=== PATIENT | male | born 1975 | race Caucasian/White ===

== ENCOUNTER 2018-11-12 06:01 | Observation (INO) ==
[2018-11-12] MEDS ORDERED: Aspirin 81 MG TAB.CHEW PO ONE (06:19)
[2018-11-12 06:38] LABS: Basophils % 0.4 %; Eosinophils # 0.1 K/mcL (0.0-0.6); Eosinophils % 0.5 %; Hematocrit 43.2 % (37.5-50.1); Hemoglobin 13.8 g/dL (12.9-16.9); Immature Granulocytes % 0.3 % (0-4); Lymphocytes # 3.2 K/mcL (0.6-4.6); Lymphocytes % 35.1 %; Mean Corpuscular HGB Conc 31.9 g/dL (31.6-35.5); Mean Corpuscular Hemoglobin 30.1 pg (28.0-33.3); Mean Corpuscular Volume 94.3 fL (83.0-100.0); Mean Platelet Volume 8.7 fL (9.4-12.4); Monocytes # 0.3 K/mcL (0.0-1.3); Monocytes % 3.6 %; Neutrophils # 5.5 K/mcL (1.6-8.9); Platelet Count 325 K/mcL (140-400); Red Blood Count 4.58 M/mcL (4.19-5.50); Red Cell Distribution Width 14.5 % (11.5-14.5); Segmented Neutrophils % 60.1 %
[2018-11-12 06:46] LABS: INR 1.3; Prothrombin Time 14.5 Seconds (9.4-12.1)
[2018-11-12 06:48] LABS: Activated Partial Thrombo Time 27.6 Seconds (26.0-36.0)
--- NOTE | 2018-11-12 06:55 | Emergency Department Note ---
Disposition Clinical Impression: Elevated troponin, Dilated cardiomyopathy, Right upper quadrant abdominal pain Chest pain Qualifiers: Chest pain type: unspecified Qualified Code(s): R07.9 - Chest pain, unspecified Dyspnea Qualifiers: Dyspnea type: unspecified Qualified Code(s): R06.00 - Dyspnea, unspecified Disposition: Admitted As Inpatient Condition: Fair Time of Disposition: 08:08 Chest Pain HPI - General Chief Complaint: ED Chest Pain Stated Complaint: CHEST PAIN Time Seen by Provider: 11/12/18 06:02 Source: patient, EMS Mode of arrival: EMS Limitations: no limitations Vital Signs Reviewed: Yes Nursing Notes Reviewed: Yes - History of Present Illness HPI Narrative: Alert and oriented nontoxic-appearing 43-year-old male presents for evaluation of ongoing retrosternal and epigastric pain. He was admitted to this facility from [facility] emergency department on October 31. This was after findings of elevated troponin of 0.158. Further workup here by way of a CTA of the chest showed dilated cardiomyopathy. CT of the abdomen showed a distended gallbladder concerning for acute cholecystitis. The patient was endorsing some right upper quadrant abdominal pain as well. He underwent a transthoracic echo which showed a left ventricular ejection fraction of 20% with global hypokinesis. The patient was planned for a cardiac catheterization on November 01 the left AGAINST MEDICAL ADVICE prior to this intervention. He states that he has had pain ever since. He endorses some nausea as well as dyspnea with an exertional component. He rates his pain an 8 out of 10 on a 10 point scale describes it as a dull ache. He denies any productive cough or hemoptysis. He does complain of bilateral lower extremity swelling as well as bilateral lower extremity pain. He is a current every day smoker but denies any other recreational drug use. Pt complaint: chest pain Onset (ago): day(s) Duration: constant Onset: during rest Pain Location: substernal, epigastric Severity: severe Severity scale (1-10): 8 Quality: aching Pain Radiation: none Improves with: nothing Worsens with: exertion Associated symptoms: Reports: nausea, diaphoresis, leg swelling (Bilateral lower extremities). Denies: vomiting, syncope, palpitations, fever, cough Treatments prior to arrival chest pain: none - Related Data Home Medications Medication Instructions Recorded Confirmed No Known Home Drugs 10/31/18 11/12/18 Allergies Allergy/AdvReac Type Severity Reaction Status Date / Time No Known Allergies Allergy Verified 10/31/18 20:01 All systems ED: reviewed and negative except as stated. Review of Systems: As Per HPI Constitutional: Denies: fever, chills, weakness, weight change Eyes: Denies: eye pain, eye discharge, vision change ENT ED: Denies: ear pain, throat pain, dental pain, hearing loss, epistaxis, congestion, dysphagia Cardiovascular: Reports: as per HPI, chest pain, dyspnea on exertion. Denies: palpitations, edema, syncope Respiratory: Reports: as per HPI, dyspnea. Denies: cough, wheezes, hemoptysis, stridor, sputum production Gastrointestinal: Reports: as per HPI, abdominal pain, nausea. Denies: vomiting, diarrhea, constipation, hematemesis, melena, hematochezia Genitourinary: Denies: urgency, dysuria, frequency, hematuria Musculoskeletal: Denies: back pain, neck pain, arthralgia, myalgia Integumentary: Denies: rash, abrasion, lesions Neurological: Denies: headache, weakness, numbness, paresthesias, confusion, abnormal gait, vertigo Psychiatric: Denies: anxiety, depression, suicidal thoughts, homicidal thoughts, auditory hallucinations, visual hallucinations Endocrine: Denies: fatigue Hematological/Lymphatic: Denies: easy bleeding, easy bruising Allergic/Immunologic: Denies: facial swelling, urticaria Chest Pain PMH - Past Medical History Medical history: Reports: no medical history Psychiatric history: Reports: no psych history - Social History Smoking Status: Current every day smoker Alcohol use: Reports: none Drug use: Reports: marijuana Physical Exam - General Limitations: no limitations General appearance: alert, in no apparent distress - Head Head exam: atraumatic, normocephalic, normal inspection - Eye Eye exam: Present: normal appearance, PERRL, EOMI. Absent: conjunctival injection - ENT ENT exam: mucous membranes moist - Neck Neck exam: Present: normal inspection, full ROM - Chest Chest inspection: Present: normal inspection, symmetric chest wall rise - Respiratory Respiratory exam: Present: normal lung sounds bilaterally. Absent: respiratory distress, wheezes, stridor, accessory muscle use, prolonged expiratory phase - Cardiovascular Cardiovascular exam: Present: normal rhythm, tachycardia, normal heart sounds - Abdominal Exam Abdominal exam: Present: soft, tenderness, normal bowel sounds. Absent: distention, guarding, rebound, rigidity, mass Abdominal tenderness: Present: RUQ, epigastrium, moderate - Extremities Exam Extremities exam: Present: full ROM, tenderness (Bilateral lower extremities diffusely), pedal edema (One plus pretibial edema bilaterally) - Expanded Lower Extremity Exam Lower leg exam: Absent: ecchymosis, erythema, palpable cord Neurovascular/Tendon exam: Present: normal capillary refill. Absent: pulse deficit, tendon deficit, extremity cold to touch - Neurological Exam Neurological exam: Present: alert, oriented X3 - Psychiatric Psychiatric exam: Present: normal affect, normal mood - Skin Skin exam: Present: warm, dry, intact, normal color Course Course Narrative: I have discussed this patient's case with Dr. Bradford, ED attending. Dr. Bardford has had a [id number] evaluation with patient and agrees with admission to the hospital service for chest pain rule out as well as further evaluation of his right upper quadrant abdominal pain. He does recommend in itiating heparin per ACS protocol for persistent chest pain with elevated troponin of 0.07. I discussed this patient's case with Dr. Waldrop, admitting hospitalist who has accepted the patient for admission to the hospitalist services. 0820: I spoke with Dr. Douglass, grocery bagger technical healthcare consultant for cardiology consultation in house. Vital Signs Temperature 97.9 F 11/12/18 06:16 Pulse Rate 112 11/12/18 06:16 Respiratory Rate 10 11/12/18 06:16 Blood Pressure 119/99 11/12/18 06:16 O2 Sat by Pulse Oximetry 96 11/12/18 06:16 Temperature 97.9 F 11/12/18 06:16 Pulse Rate 107 11/12/18 08:06 Respiratory Rate 20 11/12/18 08:06 Blood Pressure 124/101 11/12/18 08:06 O2 Sat by Pulse Oximetry 95 11/12/18 08:06 Oxygen Delivery Oxygen Delivery Nasal Cannula Chest Pain - Medical Records Medical records reviewed: Yes I reviewed the patient's medical records. - Lab Data Lab results reviewed: Yes I reviewed the patient's lab results. Lab results narrative: Lab Results 11/12/18 11/12/18 11/12/18 Range/Units 06:12 06:12 06:12 WBC (4.3-11.1) K/mcL RBC (4.19-5.50) M/mcL Hgb (12.9-16.9) g/dL Hct (37.5-50.1) % MCV (83.0-100.0) fL MCH (28.0-33.3) pg MCHC (31.6-35.5) g/dL RDW (11.5-14.5) % Plt Count (140-400) K/mcL MPV (9.4-12.4) fL Immature Gran % (0-4) % Seg Neutrophils % % Lymphocytes % % Monocytes % % Eosinophils % % Basophils % % Neutrophils # (1.6-8.9) K/mcL Lymphocytes # (0.6-4.6) K/mcL Monocytes # (0.0-1.3) K/mcL Eosinophils # (0.0-0.6) K/mcL Basophils # (0.0-0.2) K/mcL PT 14.5 H (9.4-12.1) Seconds INR 1.3 APTT 27.6 (26.0-36.0) Seconds D-Dimer 678 H (0-500) ng/mLFEU Sodium 138 (136-145) mEq/L Potassium 3.8 (3.5-5.1) mEq/L Chloride 107 (98-107) mEq/L Carbon Dioxide 21 L (23-29) mEq/L BUN 14 (6-20) mg/dL Creatinine 1.10 (0.70-1.30) mg/dL Est GFR ( Amer) > 60 (> 60) Est GFR (Non-Af Amer) > 60 (> 60) BUN/Creatinine Ratio 13 (6-26) Glucose 111 H (70-105) mg/dL Calculated Osmolality 287 (280-300) Calcium 9.0 (8.6-10.3) mg/dL Total Bilirubin 1.0 (0.3-1.0) mg/dL AST 13 (13-39) Units/L ALT 12 (7-52) Units/L Alkaline Phosphatase 99 (34-104) Units/L Troponin I 0.07 H* (< 0.04) ng/mL B-Natriuretic Peptide 1595 H (Less than 100) pg/mL Serum Total Protein 6.2 L (6.4-8.9) g/dL Albumin 4.1 (3.5-5.7) g/dL Globulin 2.1 L (2.4-3.5) g/dL Albumin/Globulin Ratio 2.0 (1.1-2.2) Lipase 19 (11-82) Units/L 11/12/18 Range/Units 06:12 WBC 9.2 (4.3-11.1) K/mcL RBC 4.58 (4.19-5.50) M/mcL Hgb 13.8 (12.9-16.9) g/dL Hct 43.2 (37.5-50.1) % MCV 94.3 (83.0-100.0) fL MCH 30.1 (28.0-33.3) pg MCHC 31.9 (31.6-35.5) g/dL RDW 14.5 (11.5-14.5) % Plt Count 325 (140-400) K/mcL MPV 8.7 L (9.4-12.4) fL Immature Gran % 0.3 (0-4) % Seg Neutrophils % 60.1 % Lymphocytes % 35.1 % Monocytes % 3.6 % Eosinophils % 0.5 % Basophils % 0.4 % Neutrophils # 5.5 (1.6-8.9) K/mcL Lymphocytes # 3.2 (0.6-4.6) K/mcL Monocytes # 0.3 (0.0-1.3) K/mcL Eosinophils # 0.1 (0.0-0.6) K/mcL Basophils # 0.0 (0.0-0.2) K/mcL PT (9.4-12.1) Seconds INR APTT (26.0-36.0) Seconds D-Dimer (0-500) ng/mLFEU Sodium (136-145) mEq/L Potassium (3.5-5.1) mEq/L Chloride (98-107) mEq/L Carbon Dioxide (23-29) mEq/L BUN (6-20) mg/dL Creatinine (0.70-1.30) mg/dL Est GFR ( Amer) (> 60) Est GFR (Non-Af Amer) (> 60) BUN/Creatinine Ratio (6-26) Glucose (70-105) mg/dL Calculated Osmolality (280-300) Calcium (8.6-10.3) mg/dL Total Bilirubin (0.3-1.0) mg/dL AST (13-39) Units/L ALT (7-52) Units/L Alkaline Phosphatase (34-104) Units/L Troponin I (< 0.04) ng/mL B-Natriuretic Peptide (Less than 100) pg/mL Serum Total Protein (6.4-8.9) g/dL Albumin (3.5-5.7) g/dL Globulin (2.4-3.5) g/dL Albumin/Globulin Ratio (1.1-2.2) Lipase (11-82) Units/L Result diagrams: 11/12/18 06:12 11/12/18 06:12 Lab Results 11/12/18 11/12/18 11/12/18 Range/Units 06:12 06:12 06:12 WBC (4.3-11.1) K/mcL RBC (4.19-5.50) M/mcL Hgb (12.9-16.9) g/dL Hct (37.5-50.1) % MCV (83.0-100.0) fL MCH (28.0-33.3) pg MCHC (31.6-35.5) g/dL RDW (11.5-14.5) % Plt Count (140-400) K/mcL MPV (9.4-12.4) fL Immature Gran % (0-4) % Seg Neutrophils % % Lymphocytes % % Monocytes % % Eosinophils % % Basophils % % Neutrophils # (1.6-8.9) K/mcL Lymphocytes # (0.6-4.6) K/mcL Monocytes # (0.0-1.3) K/mcL Eosinophils # (0.0-0.6) K/mcL Basophils # (0.0-0.2) K/mcL PT 14.5 H (9.4-12.1) Seconds INR 1.3 APTT 27.6 (26.0-36.0) Seconds D-Dimer 678 H (0-500) ng/mLFEU Sodium 138 (136-145) mEq/L Potassium 3.8 (3.5-5.1) mEq/L Chloride 107 (98-107) mEq/L Carbon Dioxide 21 L (23-29) mEq/L BUN 14 (6-20) mg/dL Creatinine 1.10 (0.70-1.30) mg/dL Est GFR ( Amer) > 60 (> 60) Est GFR (Non-Af Amer) > 60 (> 60) BUN/Creatinine Ratio 13 (6-26) Glucose 111 H (70-105) mg/dL Calculated Osmolality 287 (280-300) Calcium 9.0 (8.6-10.3) mg/dL Total Bilirubin 1.0 (0.3-1.0) mg/dL AST 13 (13-39) Units/L ALT 12 (7-52) Units/L Alkaline Phosphatase 99 (34-104) Units/L Troponin I 0.07 H* (< 0.04) ng/mL B-Natriuretic Peptide 1595 H (Less than 100) pg/mL Serum Total Protein 6.2 L (6.4-8.9) g/dL Albumin 4.1 (3.5-5.7) g/dL Globulin 2.1 L (2.4-3.5) g/dL Albumin/Globulin Ratio 2.0 (1.1-2.2) Lipase 19 (11-82) Units/L 11/12/18 Range/Units 06:12 WBC 9.2 (4.3-11.1) K/mcL RBC 4.58 (4.19-5.50) M/mcL Hgb 13.8 (12.9-16.9) g/dL Hct 43.2 (37.5-50.1) % MCV 94.3 (83.0-100.0) fL MCH 30.1 (28.0-33.3) pg MCHC 31.9 (31.6-35.5) g/dL RDW 14.5 (11.5-14.5) % Plt Count 325 (140-400) K/mcL MPV 8.7 L (9.4-12.4) fL Immature Gran % 0.3 (0-4) % Seg Neutrophils % 60.1 % Lymphocytes % 35.1 % Monocytes % 3.6 % Eosinophils % 0.5 % Basophils % 0.4 % Neutrophils # 5.5 (1.6-8.9) K/mcL Lymphocytes # 3.2 (0.6-4.6) K/mcL Monocytes # 0.3 (0.0-1.3) K/mcL Eosinophils # 0.1 (0.0-0.6) K/mcL Basophils # 0.0 (0.0-0.2) K/mcL PT (9.4-12.1) Seconds INR APTT (26.0-36.0) Seconds D-Dimer (0-500) ng/mLFEU Sodium (136-145) mEq/L Potassium (3.5-5.1) mEq/L Chloride (98-107) mEq/L Carbon Dioxide (23-29) mEq/L BUN (6-20) mg/dL Creatinine (0.70-1.30) mg/dL Est GFR ( Amer) (> 60) Est GFR (Non-Af Amer) (> 60) BUN/Creatinine Ratio (6-26) Glucose (70-105) mg/dL Calculated Osmolality (280-300) Calcium (8.6-10.3) mg/dL Total Bilirubin (0.3-1.0) mg/dL AST (13-39) Units/L ALT (7-52) Units/L Alkaline Phosphatase (34-104) Units/L Troponin I (< 0.04) ng/mL B-Natriuretic Peptide (Less than 100) pg/mL Serum Total Protein (6.4-8.9) g/dL Albumin (3.5-5.7) g/dL Globulin (2.4-3.5) g/dL Albumin/Globulin Ratio (1.1-2.2) Lipase (11-82) Units/L - Radiology Data Radiology results reviewed: Yes I reviewed the patient's radiology results. Chest X-Ray 11/12/18 06:19 IMPRESSION: Interstitial pulmonary edema. Cardiac silhouette is borderline enlarged for AP technique which could reflect cardiomegaly and/or pericardial effusion. Dedicated PA and lateral chest radiograph may help clarify. D/ / Luís Pederson / Luís Pederson Interpreting Provider: Luís Pederson Chest CTA 11/12/18 07:08 IMPRESSION: 1. No acute pulmonary embolism. 2. Cardiomegaly with pulmonary edema as well as moderate right and small left pleural effusions compatible with CHF. 3. Interval resolution of previously demonstrated left upper lobe peripheral lung opacity. D/ / 11/12/2018 07:56:48 Yoli Beasley MD / felicia Interpreting Provider: Yoli Beasley MD - EKG Data EKG attestation: Yes I reviewed and interpreted this EKG. EKG results narrative: EKG shows a sinus tachycardia at a rate of 111 bpm. MS interval 158, QRS duration 96, QT/QTc interval 371/505. No ectopy noted. Mild ST elevations noted in leads V2 and V3 which did not meet STEMI criteria. EKG unchanged in morphology from previous EKG dated from 11/01/18. EKG reviewed by Dr. Ahuja as well.
[2018-11-12] MEDS ORDERED: GI Cocktail 40 ML EACH PO ONE (06:58)
[2018-11-12 06:59] LABS: Alanine Aminotransferase 12 Units/L (7-52); Albumin 4.1 g/dL (3.5-5.7); Alkaline Phosphatase 99 Units/L (34-104); Aspartate Amino Transferase 13 Units/L (13-39); BUN/Creatinine Ratio 13 (6-26); Blood Urea Nitrogen 14 mg/dL (6-20); Carbon Dioxide 21 mEq/L (23-29); Chloride 107 mEq/L (98-107); Globulin 2.1 g/dL (2.4-3.5); Glucose 111 mg/dL (70-105); Lipase 19 Units/L (11-82); Osmolality,Calculated 287 (280-300); Potassium 3.8 mEq/L (3.5-5.1); Sodium 138 mEq/L (136-145); Total Protein 6.2 g/dL (6.4-8.9); Troponin I 0.07 ng/mL (< 0.04); eGFR For Non-African Americans > 60 (> 60)
[2018-11-12] MEDS ORDERED: *HR* Heparin 5,000 UNIT/ML VIAL IVP ONE (06:59)
[2018-11-12] MEDS ORDERED: *HR* Heparin 5,000 UNIT/ML VIAL IVP PRN ×4 (06:59→19:13)
[2018-11-12] MEDS ORDERED: Heparin 25,000 UNIT/250 ML D5W 25,000 UNIT/250 ML IV.SOLN IVC SCH (07:00)
[2018-11-12] MEDS ORDERED: Isovue-370 500 ML BOTTLE IVP ONE (07:08)
--- NOTE | 2018-11-12 07:09 | Emergency Department Note ---
Disposition Clinical Impression: Elevated troponin, Dilated cardiomyopathy, Chest pain, Right upper quadrant abdominal pain, Dyspnea Disposition: Admitted As Inpatient Condition: Fair General Adult HPI - General Chief complaint: ED Chest Pain Stated complaint: CHEST PAIN Time Seen by Provider: 11/12/18 06:02 Source: patient, EMS Mode of arrival: EMS Limitations: no limitations - History of Present Illness Pain Scale: 8 - Related Data Home Medications Medication Instructions Recorded Confirmed No Known Home Drugs 10/31/18 11/12/18 Allergies Allergy/AdvReac Type Severity Reaction Status Date / Time No Known Allergies Allergy Verified 11/12/18 16:07 Constitutional: Denies: fever, chills, weakness, weight change Eyes: Denies: eye pain, eye discharge, vision change ENT ED: Denies: ear pain, throat pain, dental pain, hearing loss, epistaxis, congestion, dysphagia Cardiovascular: Reports: as per HPI, chest pain, dyspnea on exertion. Denies: palpitations, edema, syncope Respiratory: Reports: as per HPI, dyspnea. Denies: cough, wheezes, hemoptysis, stridor, sputum production Gastrointestinal: Reports: as per HPI, abdominal pain, nausea. Denies: vomiting, diarrhea, constipation, hematemesis, melena, hematochezia Genitourinary: Denies: urgency, dysuria, frequency, hematuria Musculoskeletal: Denies: back pain, neck pain, arthralgia, myalgia Integumentary: Denies: rash, abrasion, lesions Neurological: Denies: headache, weakness, numbness, paresthesias, confusion, abnormal gait, vertigo Psychiatric: Denies: anxiety, depression, suicidal thoughts, homicidal thoughts, auditory hallucinations, visual hallucinations Endocrine: Denies: fatigue Hematological/Lymphatic: Denies: easy bleeding, easy bruising Allergic/Immunologic: Denies: facial swelling, urticaria Past Medical History - Past Medical History Medical history: Reports: no medical history Psychiatric history: Reports: no psych history - Social History Smoking Status: Current every day smoker Smokeless Tobacco Status: No Alcohol use: Reports: none Drug use: Reports: marijuana Physical Exam - General Limitations: no limitations General appearance: alert, in no apparent distress Course Vital Signs Temperature 97.9 F 11/12/18 06:16 Pulse Rate 112 11/12/18 06:16 Respiratory Rate 10 11/12/18 06:16 Blood Pressure 119/99 11/12/18 06:16 O2 Sat by Pulse Oximetry 96 11/12/18 06:16 Temperature 98 F 11/12/18 15:44 Pulse Rate 77 11/12/18 15:44 Respiratory Rate 17 11/12/18 15:44 Blood Pressure 130/73 11/12/18 15:44 O2 Sat by Pulse Oximetry 92 11/12/18 15:44 Oxygen Delivery Oxygen Delivery Nasal Cannula Medical Decision Making - Lab Data Result diagrams: 11/12/18 08:04 11/12/18 06:12 Lab Results 11/12/18 11/12/18 11/12/18 Range/Units 06:12 06:12 06:12 WBC (4.3-11.1) K/mcL RBC (4.19-5.50) M/mcL Hgb (12.9-16.9) g/dL Hct (37.5-50.1) % MCV (83.0-100.0) fL MCH (28.0-33.3) pg MCHC (31.6-35.5) g/dL RDW (11.5-14.5) % Plt Count (140-400) K/mcL MPV (9.4-12.4) fL Immature Gran % (0-4) % Seg Neutrophils % % Lymphocytes % % Monocytes % % Eosinophils % % Basophils % % Neutrophils # (1.6-8.9) K/mcL Lymphocytes # (0.6-4.6) K/mcL Monocytes # (0.0-1.3) K/mcL Eosinophils # (0.0-0.6) K/mcL Basophils # (0.0-0.2) K/mcL PT 14.5 H (9.4-12.1) Seconds INR 1.3 APTT 27.6 (26.0-36.0) Seconds D-Dimer 678 H (0-500) ng/mLFEU Heparin Anti-Xa, Unfract (0.30-0.70) IU/mL Sodium 138 (136-145) mEq/L Potassium 3.8 (3.5-5.1) mEq/L Chloride 107 (98-107) mEq/L Carbon Dioxide 21 L (23-29) mEq/L BUN 14 (6-20) mg/dL Creatinine 1.10 (0.70-1.30) mg/dL Est GFR ( Amer) > 60 (> 60) Est GFR (Non-Af Amer) > 60 (> 60) BUN/Creatinine Ratio 13 (6-26) Glucose 111 H (70-105) mg/dL Calculated Osmolality 287 (280-300) Calcium 9.0 (8.6-10.3) mg/dL Total Bilirubin 1.0 (0.3-1.0) mg/dL AST 13 (13-39) Units/L ALT 12 (7-52) Units/L Alkaline Phosphatase 99 (34-104) Units/L Troponin I 0.07 H* (< 0.04) ng/mL B-Natriuretic Peptide 1595 H (Less than 100) pg/mL Serum Total Protein 6.2 L (6.4-8.9) g/dL Albumin 4.1 (3.5-5.7) g/dL Globulin 2.1 L (2.4-3.5) g/dL Albumin/Globulin Ratio 2.0 (1.1-2.2) Lipase 19 (11-82) Units/L 11/12/18 11/12/18 11/12/18 Range/Units 06:12 08:04 08:04 WBC 9.2 8.3 (4.3-11.1) K/mcL RBC 4.58 4.52 (4.19-5.50) M/mcL Hgb 13.8 13.7 (12.9-16.9) g/dL Hct 43.2 42.1 (37.5-50.1) % MCV 94.3 93.1 (83.0-100.0) fL MCH 30.1 30.3 (28.0-33.3) pg MCHC 31.9 32.5 (31.6-35.5) g/dL RDW 14.5 14.6 H (11.5-14.5) % Plt Count 325 294 (140-400) K/mcL MPV 8.7 L 8.9 L (9.4-12.4) fL Immature Gran % 0.3 (0-4) % Seg Neutrophils % 60.1 % Lymphocytes % 35.1 % Monocytes % 3.6 % Eosinophils % 0.5 % Basophils % 0.4 % Neutrophils # 5.5 (1.6-8.9) K/mcL Lymphocytes # 3.2 (0.6-4.6) K/mcL Monocytes # 0.3 (0.0-1.3) K/mcL Eosinophils # 0.1 (0.0-0.6) K/mcL Basophils # 0.0 (0.0-0.2) K/mcL PT 13.9 H (9.4-12.1) Seconds INR 1.2 APTT (26.0-36.0) Seconds D-Dimer (0-500) ng/mLFEU Heparin Anti-Xa, Unfract 0.01 L (0.30-0.70) IU/mL Sodium (136-145) mEq/L Potassium (3.5-5.1) mEq/L Chloride (98-107) mEq/L Carbon Dioxide (23-29) mEq/L BUN (6-20) mg/dL Creatinine (0.70-1.30) mg/dL Est GFR ( Amer) (> 60) Est GFR (Non-Af Amer) (> 60) BUN/Creatinine Ratio (6-26) Glucose (70-105) mg/dL Calculated Osmolality (280-300) Calcium (8.6-10.3) mg/dL Total Bilirubin (0.3-1.0) mg/dL AST (13-39) Units/L ALT (7-52) Units/L Alkaline Phosphatase (34-104) Units/L Troponin I (< 0.04) ng/mL B-Natriuretic Peptide (Less than 100) pg/mL Serum Total Protein (6.4-8.9) g/dL Albumin (3.5-5.7) g/dL Globulin (2.4-3.5) g/dL Albumin/Globulin Ratio (1.1-2.2) Lipase (11-82) Units/L Critical Care Time Critical Care Time: Yes Total Critical Care Time: 30 Attestation: The high probability of a clinically significant, sudden or life threatening deterioration of the [] system(s) required my full and direct attention, intervention and personal management. The aggregate critical care time was [] minutes. This time is in addition to time spent performing reported procedures but includes the following: [] Data Review and interpretation [] Patient assessment and monitoring of vital signs [] Documentation [] Medication orders and management Attestation Statement - Attestation Attestation: For this encounter, I have reviewed the [employer] or PA documentation, treatment plan, and medical decision making; and I have had face to face time with this patient. [id number] time provided Patient presents with upper abdominal pain as well as chest pain. He was recently admitted for similar symptoms with workup. I see that he did have a gallbladder ultrasound at that time. He was scheduled for a cardiac catheterization times medical advice. Today the patient is tachycardic with an elevated d-dimer. I did recommend a CTA chest although I was told he did have one at an outside facility last week which was negative for PE. I did review the transcribed report of his echocardiogram from last week which shows dilated cardiomyopathy with a depressed ejection fraction. The patient will require heparinization due to an elevated troponin and admission for further evaluation
[2018-11-12] MEDS ORDERED: Naloxone 0.4 MG/ML INJ IVP PRN ×2 (08:08→19:13)
[2018-11-12] MEDS ORDERED: Adenosine 90 MG/30 ML MLS IV ONE (08:10)
[2018-11-12 08:27] LABS: Hematocrit 42.1 % (37.5-50.1); Hemoglobin 13.7 g/dL (12.9-16.9); Mean Corpuscular HGB Conc 32.5 g/dL (31.6-35.5); Mean Corpuscular Hemoglobin 30.3 pg (28.0-33.3); Mean Corpuscular Volume 93.1 fL (83.0-100.0); Mean Platelet Volume 8.9 fL (9.4-12.4); Platelet Count 294 K/mcL (140-400); Red Blood Count 4.52 M/mcL (4.19-5.50); Red Cell Distribution Width 14.6 % (11.5-14.5)
[2018-11-12 08:40] LABS: Heparin anti-factor XA UFH 0.01 IU/mL (0.30-0.70); INR 1.2; Prothrombin Time 13.9 Seconds (9.4-12.1)
[2018-11-12] MEDS ORDERED: Nitroglycerin 0.4 MG TAB.SUBL SL PRN ×2 (10:20→19:13)
[2018-11-12] MEDS ORDERED: *HR* Morphine 2 MG/ML SYRINGE IVP PRN (10:22)
[2018-11-12] MEDS ORDERED: Aspirin 81 MG TAB.CHEW PO SCH (10:30)
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
[2018-11-12] MEDS ORDERED: 0.9 % Sodium Chloride 250 ML ONE (11:02)
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
[2018-11-12] MEDS: Furosemide 40 MG/4 ML VIAL IVP SCH ×2 (12:11→17:59)
[2018-11-12 13:22] LABS: Bilirubin,Urine Negative (Negative); Blood,Urine Negative (Negative); Clarity,Urine Clear (Clear); Color,Urine Yellow (Yellow); Glucose,Urine (UA) Normal (Normal); Ketones,Urine Negative (Negative); Leukocyte Esterase,Urine Negative (Negative); Nitrite,Urine Negative (Negative); Protein,Urine Negative (Neg-Trace); Specific Gravity,Urine 1.025 (1.010-1.025); Urobilinogen,Urine Normal (Normal)
[2018-11-12 13:33] LABS: Amphetamine Screen,Urine Positive ng/mL (Cutoff=1000); Barbiturate Screen,Urine Negative ng/mL (Cutoff=200); Benzodiazepines Screen,Urine Negative ng/mL (Cutoff=200); Cannabinoid Screen,Urine Negative ng/mL (Cutoff = 50); Cocaine Screen,Urine Negative ng/mL (Cutoff= 300); Opiate Screen,Urine Negative ng/mL (Cutoff=300); Phencyclidine Screen,Urine Negative ng/mL (Cutoff=25)
[2018-11-12] MEDS: Heparin 25,000 UNIT/250 ML D5W 25,000 UNIT/250 ML IV.SOLN IVC SCH (21:19)
[2018-11-13 01:37] LABS: Basophils # 0.1 K/mcL (0.0-0.2); Basophils % 0.6 %; Eosinophils # 0.1 K/mcL (0.0-0.6); Eosinophils % 1.4 %; Hematocrit 42.1 % (37.5-50.1); Hemoglobin 13.6 g/dL (12.9-16.9); Immature Granulocytes % 0.3 % (0-4); Lymphocytes # 3.3 K/mcL (0.6-4.6); Lymphocytes % 37.4 %; Mean Corpuscular HGB Conc 32.3 g/dL (31.6-35.5); Mean Corpuscular Hemoglobin 29.5 pg (28.0-33.3); Mean Corpuscular Volume 91.3 fL (83.0-100.0); Mean Platelet Volume 9.3 fL (9.4-12.4); Monocytes # 0.3 K/mcL (0.0-1.3); Monocytes % 3.8 %; Platelet Count 306 K/mcL (140-400); Red Blood Count 4.61 M/mcL (4.19-5.50); Red Cell Distribution Width 14.5 % (11.5-14.5); Segmented Neutrophils % 56.5 %
[2018-11-13 01:53] LABS: BUN/Creatinine Ratio 13 (6-26); Blood Urea Nitrogen 17 mg/dL (6-20); Calcium 9.1 mg/dL (8.6-10.3); Carbon Dioxide 23 mEq/L (23-29); Chloride 104 mEq/L (98-107); Glucose 117 mg/dL (70-105); Magnesium 1.7 mg/dL (1.6-2.6); Osmolality,Calculated 289 (280-300); Phosphorous 4.1 mg/dL (2.7-4.5); Potassium 3.6 mEq/L (3.5-5.1); Sodium 138 mEq/L (136-145); eGFR For Non-African Americans > 60 (> 60)
[2018-11-13] MEDS: Furosemide 40 MG/4 ML VIAL IVP SCH ×2 (07:54→16:38)
[2018-11-13] MEDS: Aspirin 81 MG TAB.CHEW PO SCH (07:54)
[2018-11-13] MEDS: Metoprolol XL (24 HR) Succ 25 MG TAB.ER.24H PO SCH (07:54)
--- NOTE | 2018-11-13 08:17 | Event Note ---
Date of Encounter: 11/13/18 Time of Encounter: 08:15 - Cardiology Event Note EF 20% on echo, Trop 0.07, 0.06, 0.09, 0.08. On asa, statin, IV lasix, BB, Hep gtt. [facility] today.
--- NOTE | 2018-11-13 08:48 | Internal Med Progress Note ---
<Joe Bethea - Last Filed: 11/13/18 16:43> Hospitalist Progress Note - Encounter Date of Encounter: 11/13/18 Time of Encounter: 08:55 - Subjective Interval History: Patient was seen and examined at bedside. He states he is feeling well today. He denies having any chest pain, shortness of breath, fever, chills, diaphoresis, visual changes, headache, lower extremity swelling, or palpitations. He is scheduled for a left heart catheterization later today. He has no complaints at this time. - Exam Vitals: Temp Pulse Resp BP Pulse Ox 97.9 F 116 18 123/89 97 11/13/18 07:20 11/13/18 07:20 11/13/18 07:20 11/13/18 07:20 11/13/18 07:20 Exam: General: Conversant, no acute distress Head: atraumatic, normocephalic Eye: PERRL, EOMI, conjuntiva pink, sclera anicteric Neck: Supple, trachea midline; No lymphadenopathy Respiratory: Shortened inspiratory phase. No accessory muscle use, wheezes, rales, or rhonchi Cardiovascular: RRR, +S1, +S2; no murmurs, rubs, gallops Abdomen: Soft, nontender Extremities: warm, radial pulses palpable and symmetrical Psychiatric: Normal affect, normal mood Skin: Dry, intact - Assessment and Plan (1) HFrEF (heart failure with reduced ejection fraction) Current Visit: Yes Status: Acute Assessment and Plan: - Patient was recently diagnosed with dilated cardiomyopathy - Severely reduced ejection fraction of 20%; LV function globally reduced - Initially presented with lower extremity edema - CXR on admission: interstitial pulmonary edema, enlarged cardiac silhouette - CTA on admission: Cardiomegaly with pulmonary edema, moderate right, small left pleural effusion - BNP was elevated on presentation at 1595 Plan: - Lasix 40 mg IV twice a day - Strict intake and output, daily weights - Currently on 2 L fluid restriction daily - Low-dose beta monica has been started; metoprolol XL 12.5 mg by mouth daily - Currently on aspirin and statin - Cardiology is currently following; per cardiology event note, plan is for [facility] later today (2) NSTEMI (non-ST elevated myocardial infarction) Current Visit: No Status: Acute Assessment and Plan: - Initially presented with chest pain of several days duration - Troponin levels: 07, 0.06, 0.09, 0.08 - EKG - Mild ST elevations noted in leads V2 and V3; 111 bpm - Urine drug screen was positive for amphetamines Plan: - Currently NPO - Cardiology following; [facility] later today - Currently on heparin drip - Continue aspirin, statin, metoprolol XL 12.5 mg by mouth daily (3) Tachycardia Current Visit: Yes Status: Acute Assessment and Plan: - Unknown etiology at this time - Heart rate has been approximately 100-120 since admission - CTA of the chest was negative for PE - UDS was positive for amphetamine - Was started on low-dose beta monica, metoprolol XL 12.5 mg by mouth daily - Would appreciate any further recommendations from cardiology (4) Right upper quadrant abdominal pain Current Visit: Yes Status: Acute Assessment and Plan: - Patient presented with pain in the right upper quadrant - Ultrasound of the gallbladder is ordered and is currently pending - White count within normal limits, afebrile - Time Spent with Patient Total time spent is greater than 50% in coordination of care (as documented) at patient's floor/unit and/or counseling patient: Internal Medicine: Result - Labs CBC & Chem 7: 11/13/18 00:16 11/13/18 00:16 Labs: Short CBC 11/13/18 Range/Units 00:16 WBC 8.8 (4.3-11.1) K/mcL Hgb 13.6 (12.9-16.9) g/dL Hct 42.1 (37.5-50.1) % Plt Count 306 (140-400) K/mcL Neutrophils # 5.0 (1.6-8.9) K/mcL BMP 11/13/18 00:16 Sodium 138 Potassium 3.6 Chloride 104 Carbon Dioxide 23 BUN 17 Creatinine 1.26 Glucose 117 H Calcium 9.1 Cardiac Enzymes 11/12/18 11/12/18 11/13/18 Range/Units 12:27 18:49 00:16 Troponin I 0.06 H* 0.09 H* 0.08 H* (< 0.04) ng/mL Urine 11/12/18 Range/Units 12:57 Urine Color Yellow (Yellow) Urine Clarity Clear (Clear) Urine pH 6.0 (5.0-8.0) pH Units Ur Specific [place] 1.025 (1.010-1.025) Urine Protein Negative (Neg-Trace) mg/dL Urine Glucose (UA) Normal (Normal) mg/dL - ABG Interpretation ABG results: PT/INR, D-dimer PT 13.9 Seconds (9.4-12.1) H 11/12/18 08:04 678 ng/mLFEU (0-500) H 11/12/18 06:12 - Impressions Impressions Chest CTA 11/12/18 07:08 IMPRESSION: 1. No acute pulmonary embolism. 2. Cardiomegaly with pulmonary edema as well as moderate right and small left pleural effusions compatible with CHF. 3. Interval resolution of previously demonstrated left upper lobe peripheral lung opacity. 4. Enlarged mediastinal and hilar lymph nodes, likely reactive. D/ / 11/12/2018 07:56:48 Yoli Beasley MD / felicia Interpreting Provider: Yoli Beasley MD Consult Discharge Plan - Plan Referrals: NONE,PCP [Primary Care Provider] - Prescriptions: Sacubitril/Valsartan 24/26 mg [Entresto 24 mg-26 mg Tablet] 1 each PO BID #60 tablet <Grady Torres - Last Filed: 11/13/18 17:36> Hospitalist Progress Note - Encounter Date of Encounter: 11/13/18 - Exam Vitals: Temp Pulse Resp BP Pulse Ox 98.0 F 107 18 120/82 98 11/13/18 17:19 11/13/18 17:19 11/13/18 17:19 11/13/18 17:19 11/13/18 17:19 - Assessment and Plan (1) Tobacco abuse Current Visit: Yes Status: Acute (2) Dilated cardiomyopathy Current Visit: Yes Status: Acute (3) DVT prophylaxis Current Visit: Yes Status: Acute (4) Chest pain Current Visit: Yes Status: Acute (5) Acute systolic CHF (congestive heart failure) Current Visit: Yes Status: Acute - Time Spent with Patient Total time spent is greater than 50% in coordination of care (as documented) at patient's floor/unit and/or counseling patient: Internal Medicine: Result - Labs CBC & Chem 7: 11/13/18 00:16 11/13/18 00:16 Labs: Short CBC 11/13/18 Range/Units 00:16 WBC 8.8 (4.3-11.1) K/mcL Hgb 13.6 (12.9-16.9) g/dL Hct 42.1 (37.5-50.1) % Plt Count 306 (140-400) K/mcL Neutrophils # 5.0 (1.6-8.9) K/mcL BMP 11/13/18 00:16 Sodium 138 Potassium 3.6 Chloride 104 Carbon Dioxide 23 BUN 17 Creatinine 1.26 Glucose 117 H Calcium 9.1 Cardiac Enzymes 11/12/18 11/13/18 Range/Units 18:49 00:16 Troponin I 0.09 H* 0.08 H* (< 0.04) ng/mL - ABG Interpretation ABG results: PT/INR, D-dimer PT 13.9 Seconds (9.4-12.1) H 11/12/18 08:04 678 ng/mLFEU (0-500) H 11/12/18 06:12 - Impressions Impressions Gallbladder Ultrasound 11/13/18 08:00 IMPRESSION: Unremarkable right upper quadrant ultrasound. D/ / Barrett Kurtz MD / Barrett Kurtz MD Interpreting Provider: Barrett Kurtz MD - Attending Attestation I examined this patient and my medical decision-making was reviewed with the Resident Physician. I agree with the documented findings, disposition and treatment plan as described except to the extent set forth below. <Joe Bethea - Last Filed: 11/13/18 16:43> (1) HFrEF (heart failure with reduced ejection fraction) Qualifiers: Heart failure chronicity: acute on chronic Qualified Code(s): I50.23 - Acute on chronic systolic (congestive) heart failure <Grady Torres - Last Filed: 11/13/18 17:36> (4) Chest pain Qualifiers: Chest pain type: unspecified Qualified Code(s): R07.9 - Chest pain, unspecified
[2018-11-13] MEDS ORDERED: Metoprolol XL (24 HR) Succ 25 MG TAB.ER.24H PO SCH (09:00)
--- NOTE | 2018-11-13 13:49 | Pre-Sedation Evaluation ---
Pre-sedation evaluation - Pre-sedation checklist Date of procedure: 11/13/18 Procedure: Cardiac Cath Recent Vitals: Last Vital Signs Temp 97.9 F 11/13/18 07:20 Pulse 105 11/13/18 11:44 Resp 16 11/13/18 11:44 BP 103/76 11/13/18 11:44 Pulse Ox 98 11/13/18 11:44 H&P (including ROS) documented in medical record: Yes Previous reaction to sedatives/anesthetics: No Dietary Status: NPO after Midnight Dentition: No loose teeth or bridges, poor dentition ASA Classification *see protocol: CLASS II-Mild systemic disease Cardiac Registry (Cardio Only) - Functional Capacity Functional Capacity: >=4 METS without symptoms - Clincal Frailty Scale Clinical Frailty Scale: Managing Well
[2018-11-13] MEDS ORDERED: *HR* Heparin 10,000 UNIT/10 ML VIAL ONE ×2 (14:36→15:15)
[2018-11-13] MEDS ORDERED: 0.9 % Sodium Chloride 1,000 ML ONE ×2 (14:36→14:40)
[2018-11-13] MEDS ORDERED: Heparin 1,000 UNITS/500 mL 500 ML ONE (14:36)
[2018-11-13] MEDS ORDERED: ISOVUE-370 200 ML INFUS..BTL ONE ×2 (14:37→15:19)
[2018-11-13] MEDS ORDERED: Nitroglycerin 1,000 MCG/10 ML VIAL IV ONE (14:37)
[2018-11-13] MEDS ORDERED: *HR* FentaNYL (PF) 100 MCG/2 ML VIAL ONE (14:43)
[2018-11-13] MEDS ORDERED: *HR* Midazolam HCl 2 MG/2 ML VIAL ONE (14:43)
--- NOTE | 2018-11-13 15:49 | Event Note ---
Date of Encounter: 11/13/18 Time of Encounter: 15:45 - Cardiology Event Note [facility] completed. No intervention. Moderate non-obstructive CAD seen. Medical management recommended. NICMP. Recommended to start entresto. RX sent to [facility] pharmacy for [place] check. Continue IV diuresis with plan to transition to oral lasix tomorrow.
--- NOTE | 2018-11-13 16:03 | Invasive Diagnostic Lab Proc ---
Name: Jas Vargas Date of Study: 11/13/2018 Date: 1975 Ht: 70.9in Medical Record#: [id number] Age: 43 Wt: 216.05lb Gender: Male BSA: 2.18 Order #: [id number] BMI: 30.25 Physicians Procedure Physician: Lokesh Jain MD Referring MD: Referring MD: Staff Name Position Time In Alexander Kelly RN 02:43 PM Alexander Kelly RN Yarding Supervisor 02:44 PM Afshan Oliva RT Scrub 02:44 PM Ton Chase RN Monitor 02:45 PM Rosalia Smith RT (R) Scrub 02:51 PM Indications Indication Non-Stemi Procedures Performed Procedure L HRT ARTERY/VENTRICLE ANGIO IV Doppler BLD Flow 1st Vessel Pre-Procedure Checklist Informed consent is complete signed and on chart. H&P is on chart. ID band is on and ID verified with patient. Patient NPO for procedure The procedure was described for the patient and questions were answered. Blood Pressure: 124/83 ECG is on chart. Rhythm: Sinus Tachycardia Plan of Care Patient will tolerate the procedure without complications. Adequate level of comfort will be maintained. Hemodynamics will remain stable Patient will recover from procedure without complications. Respiratory function will be maintained. Cardiac rhythm will remain stable. Patient temperature will be maintained. Patient and/or family have verbalized understanding of the procedure. Patient Education Chief Complaint/Reason for Test: Cardiac Cath Developmental Category: Adult (18-64 years) Developmentally Appropriate for Age: Yes Learning Barriers: None Education Needs: Procedure Education Method: Verbal Information Taught: Cardiac Cath Educational Evaluation: Able to repeat information Intravenous Access Time IV Size Location DC'd Fluid/Drip Rate Units RN 20g 1 /" Patent On Arrival 0.9NaCl ml/hr Allergies No Known Allergies Vital Signs Time BP (mmHg) HR (bpm) O2 Sat. RR (bpm) LOC 02:45 PM / % 5 = Fully awake and oriented or at pre-proc level 02:45 PM / % 4 = Oriented but drowsy 03:01 PM / % 4 = Oriented but drowsy 03:16 PM / % 4 = Oriented but drowsy 02:49 PM 124 / 83 103 98 % 18 02:53 PM 123 / 86 106 98 % 18 02:58 PM 126 / 85 103 98 % 15 03:03 PM 119 / 83 99 96 % 16 03:08 PM 124 / 88 102 96 % 03:13 PM 129 / 91 102 93 % 15 03:19 PM 126 / 84 98 97 % 14 03:23 PM 129 / 85 104 95 % 03:29 PM 129 / 92 105 97 % 18 03:31 PM / % 5 = Fully awake and oriented or at pre-proc level Procedural Medications Time Medication Dose Units Method Given By 02:48 PM Versed 1 mg Intravenous Alexander Kelly RN 02:48 PM Fentanyl 50 mcg Intravenous Alexander Kelly RN 03:02 PM Oxygen 2 L/min nasal cannula Alexander Kelly RN 03:02 PM Versed 0.5 mg Intravenous Alexander Kelly RN 03:03 PM Fentanyl 25 mcg Intravenous Alexander Kelly RN 03:03 PM Lidocaine 2% 19 ml Subcutaneous Lokesh Jain MD 03:15 PM Heparin 5000 units Intravenous Alexander Kelly RN 03:20 PM 90mg Adenosine in 90 ml 0.9 NS 823 mcg Intravenous Alexander Kelly RN 03:24 PM 90mg Adenosine in 90 ml 0.9 NS 823 mcg Intravenous Alexander Kelly RN ASA Classification: CLASS II- Mild systemic disease (i.e. well-controlled diabetes, hypertension, asthma, cigarette smoking) Gabriella Score Preprocedure Postprocedure Activity 2- Moves 4 extremities sustained head lift Activity 2- Moves 4 extremities sustained head lift Circulation 2- SBP +/= 20 points of pre-anesthetic level Circulation 2- SBP +/= 20 points of pre-anesthetic level Consciousness 2- Awake and alert oriented x 3 Consciousness 2- Awake and alert oriented x 3 O2 Saturation 2- Able to maintain O2 satruation of 92% on room air O2 Saturation 2- Able to maintain O2 satruation of 92% on room air Respiratory 2- Able to deep breathe and cough well Respiratory 2- Able to deep breathe and cough well Total Score 10 Total Score 10 Contrast Agent: Isovue Diagnostic Contrast: 111 ml Total Contrast: 111 ml Fluoro Dose: 45 mGy Activated Clotting Time Time Seconds to Clot 03:15 PM 119 Procedure Log Time Note Enter By 02:42 PM Case Start 02:43 PM 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 Informed consent was obtained. oparker 02:44 PM IV Supplies used: J loop Angio Cath. oparker 02:44 PM Patient charges- Angio tray pack, Navilyst 3mm J, Pulse Oximetry and ACIST tubing and transducer oparker 02:44 PM ASA Class CLASS II- Mild systemic disease (i.e. well-controlled diabetes, hypertension, asthma, cigarette smoking) oparker 02:44 PM Afshan Oliva RT Position: Scrub Time in: :44 oparker 02:45 PM Ton Chase RN Position: Monitor Time in: 14:45 oparker 02:45 PM Hair removed from procedure site in holding area using clippers. Bilateral groin prepped with Chloraprep by Afshan Oliva, then patient was draped. Skin intact. oparker 02:45 PM Time: 14:45LOC: 5 = Fully awake and oriented or at pre-proc level oparker 02:45 PM Time: 14:45 Patient comfortable and pain free: Yes oparker 02:48 PM Vitals capture started with the following parameters, Patient=Adult, Interval=5 min, Initial Vmqjhyae=016 mmHg, Deflation Rate=5 mmHg, Cuff placed on Right Leg 02:48 PM Time: 14:48 Versed 1 mg Intravenous Given by Alexander Kelly RN oparker 02:48 PM Time: 14:48 Fentanyl 50 mcg Intravenous Given by Alexander Kelly RN oparker 02:49 PM OR=430 bpm, URHY=504/83 mmhg, SpO2=98.0 %, Resp=18 B/min, Comment=Sinus tach 02:49 PM Recorded ECG: DX=899 Condition=Condition 1 02:51 PM Rosalia Smith RT (R) Position: Scrub Orientee Time in: 14:51 oparker 02:53 PM NI=863 bpm, FTVH=584/86 mmhg, SpO2=98.0 %, Resp=18 B/min, Comment=Sinus tach 02:55 PM Pressure channel 1 zeroed. 02:58 PM DA=345 bpm, FDMH=805/85 mmhg, SpO2=98.0 %, Resp=15 B/min, EtCO2=24 mmHg, Comment=Sinus tach 03:01 PM Time: 14:45 Patient comfortable and pain free: Yes oparolena 03:01 PM Time: 14:45LOC: 4 = Oriented but drowsy oparolena 03:02 PM Time: 15:02 Oxygen on at 2 L/min per nasal cannula by Alexander Kelly RN 03:03 PM Time: 15:02 Versed 0.5 mg Intravenous Given by Alexander Kelly RN 03:03 PM Time: 15:03 Fentanyl 25 mcg Intravenous Given by Alexander Kelly RN 03:03 PM Procedure start 15:00 oparker 03:03 PM Time: 15:03 19 ml Lidocaine 2% to right groin Subcutaneous Given by MD sandee Curtis 03:03 PM HR=99 bpm, XTJZ=649/83 mmhg, SpO2=96.0 %, Resp=16 B/min, EtCO2=29 mmHg, Comment=Sinus tach 03:03 PM Time out was performed according to hospital policy. Conscious sedation and anesthesia was achieved (see medication log with in this report above) oparker 03:04 PM Micro-Introducer Kit utilized for sheath placement oparker 03:06 PM Access obtained by percutaneous puncture. 6Fr 10cm Terumo Boyds sheath placed in right Femoral artery. [id number] oparker 03:07 PM 0.035 145cm Navilyst 3mmJ wire [id number] oparker 03:07 PM 5Fr FR 4 catheter inserted over the wire DN oparker 03:08 PM RCA angiography performed in multiple views. oparker 03:08 PM Recorded Pressure: Ao, OM=521, Condition=Condition 1 (Aorta) Ao 95/85/90 03:08 PM PG=326 bpm, IFOW=501/88 mmhg, SpO2=96.0 %, EtCO2=20 mmHg, Comment=Sinus tach 03:08 PM Catheter removed oparker 03:08 PM 5Fr FL 4 catheter inserted over the wire DN oparker 03:09 PM LCA angiography performed in multiple views. oparker 03:10 PM Recorded Pressure: Ao, ON=987, Condition=Condition 1 (Aorta) Ao 101/83/92 03:12 PM Catheter removed oparker 03:13 PM KJ=723 bpm, OHYC=155/91 mmhg, SpO2=93.0 %, Resp=15 B/min, Comment=Sinus tach 03:15 PM At 15:15 the ACT was 119 seconds. oparker 03:15 PM Time: 15:15 Heparin 5000 units Intravenous Given by Alexander Kelly RN oparker 03:16 PM .014 [employer] [place] 190cm guide wire across target lesion- successful. reused? No oparker 03:16 PM Time: 15:01 Patient comfortable and pain free: Yes oparker 03:16 PM Time: 15:01LOC: 4 = Oriented but drowsy oparker 03:16 PM Asist FFR Catheter advanced to target lesion. oparker 03:16 PM [ Start FFR sample ] 03:16 PM Pressure channel 4 zeroed. 03:19 PM HR=98 bpm, CGJW=047/84 mmhg, SpO2=97.0 %, Resp=14 B/min, EtCO2=33 mmHg, Comment=Sinus tach 03:20 PM Pressure channel 4 equalized to channel 1. 03:21 PM Time: 15:20 90mg Adenosine in 90 ml 0.9 NS 823 mcg Intravenous Given by Alexander Kelly RN Villarreal pump oparker 03:22 PM Recorded Pressure: Ao, PV1, ZJ=198, Condition=Condition 1 (Aorta) Ao 98/87/93, (Portal Vein) PV1 86/91/78 03:23 PM FFR Measurement: 0.82 oparker 03:23 PM BJ=614 bpm, KERN=229/85 mmhg, SpO2=95.0 %, EtCO2=26 mmHg, Comment=Sinus tach 03:24 PM Time: 15:24 90mg Adenosine in 90 ml 0.9 NS 823 mcg Intravenous Given by Alexander Kelly RN Villarreal pump oparker 03:26 PM Recorded Pressure: Ao, PV1, EZ=912, Condition=Condition 1 (Aorta) Ao 100/87/94, (Portal Vein) PV1 87/93/80 03:26 PM FFR: Condition=Condition 1, Device=VOLCANO PRIME WIRE 03:26 PM Recorded Pressure: Ao, PV1, CV=868, Condition=Condition 1 (Aorta) Ao 100/88/95, (Portal Vein) PV1 87/93/80 03:26 PM FFR Measurement: 0.84 oparker 03:27 PM [ Start FFR sample ] 03:27 PM [ Start FFR sample ] 03:27 PM Flow Wire/Catheter removed intact oparker 03:28 PM Guide wire removed intact. oparker 03:29 PM ZI=646 bpm, PKRK=889/92 mmhg, SpO2=97.0 %, Resp=18 B/min, EtCO2=25 mmHg, Comment=Sinus tach 03:29 PM 5Fr Pigtail catheter inserted over the wire DNC oparker 03:29 PM Catheter crossed the aortic valve and was selectively placed in the left ventricle. Pressures recorded on pullback for left heart catheterization. oparker 03:30 PM Wire removed oparker 03:30 PM Recorded Pressure: LV, AT=279, Condition=Condition 1 (Left Ventricle) LV 141/27/75 03:31 PM Pressure channel 1 zero failed. 03:31 PM Time: 15:16LOC: 4 = Oriented but drowsy oparker 03:31 PM Time: 15:16 Patient comfortable and pain free: Yes oparker 03:31 PM Recorded Pressure: LV, Ao, EC=360, Condition=Condition 1 (Left Ventricle) LV 119/16/39, (Aorta) Ao 122/24/71 03:31 PM Lesion found in Mid LAD. Pre Stenosis: 65 Pre SAMANTA Flow: 3: Complete and Brisk Flow/Perfusion oparker 03:31 PM Lesion found in Mid Circumflex. Pre Stenosis: 50 Pre SAMANTA Flow: 3: Complete and Brisk Flow/Perfusion oparker 03:32 PM Catheter removed oparker 03:32 PM Procedure completed at 15:32 11/13/2018 oparker 03:33 PM Sign out completed: Radiation Dose 357.51 mGy, 44.7 Gy/cm2 Fluoro Time: 5.9 Isovue 370 - 200ml contrast 111 ml given by Lokesh Jain MD. Complications: None. 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 Sedation minutes 45. Cardiac Rehab Consult needed: No. Confirmed administered medications: Yes oparker 03:40 PM Did you address SAMANTA flow and Dominance? YesCoronary Dominance: right oparker 03:41 PM Arterial sheath pulled, Angio-seal closure device used and was Successful S/N. oparker 03:41 PM Estimated Blood Loss: minimal oparker 03:41 PM Post ECG Sinus Tachycardia oparker 03:41 PM Post Blood Pressure 113/74 oparker 03:42 PM 15:41 Post Pulses Bilateral DP 2+ oparker 03:42 PM Information taught Cardiac Cath, IVUS/Flowire, and Angioseal oparker 03:42 PM Education needs Procedure, Plan of Care, and Disease Process oparker 03:42 PM Learning barriers :None oparker 03:42 PM Education Methods Verbal oparker 03:42 PM Education evaluation Able to repeat information oparker 03:42 PM Site status No bleeding/hematoma - Rt Groin as reported by Afshan Oliva RT at 15:42 oparker 03:42 PM Opsite applied oparker 03:42 PM Delay to floor No oparker 03:42 PM Family placed in consult room. oparker 03:43 PM Complications: None oparker 03:44 PM What is the NYHA Class? Class 3 oparker 03:46 PM Time: 15:31 Patient comfortable and pain free: Yes oparker 03:46 PM Time: 15:31LOC: 5 = Fully awake and oriented or at pre-proc level oparker 03:47 PM Report given to sandor CROCKER Pt taken to 2NE Room #29. 15:47 oparker 03:47 PM Patient out of room: 15:47 oparker Complications Complication None None Hemodynamics Pressures Site Systolic/A Wave Diastolic/V Wave Mean AO 95 85 90 AO 101 83 92 AO 98 87 93 PV1 86 91 78 AO 100 87 94 PV1 87 93 80 AO 100 88 95 PV1 87 93 80 LV 141 27 75 LV 119 16 39 AO 122 24 71 Post Procedure Information Blood Pressure: 113/74 mmHg Rhythm: Sinus Tachycardia Post procedural instructions were given Closure Device Time Device Success/Fail 11/13/2018 3:39:00 PM Angio-Seal VIP yes Site Checks Time Location Status Staff Sheath In? Note 03:42 PM Rt Groin No bleeding/hematoma Afshan Oliva RT Pulses Time Site Pre-Procedure Post-Procedure Note Bilateral DP & PT 1+ Bilateral radial 2+ 3:41:00 PM Bilateral DP 2+ Updated by Ton Chase RN on 11/13/2018 3:51:45 PM electronically signed on 11/13/2018 3:52:35 PM with status of Final
[2018-11-13] MEDS ORDERED: traMADol 50 MG TABLET PO PRN (19:42)
[2018-11-13] MEDS ORDERED: GI Cocktail 40 ML EACH PO ONE (23:47)
[2018-11-14] MEDS: Pantoprazole 40 MG VIAL IVP SCH ×2 (01:45→07:52)
[2018-11-14 05:53] LABS: Basophils # 0.1 K/mcL (0.0-0.2); Basophils % 0.6 %; Eosinophils # 0.1 K/mcL (0.0-0.6); Eosinophils % 0.9 %; Hematocrit 44.9 % (37.5-50.1); Hemoglobin 14.6 g/dL (12.9-16.9); Immature Granulocytes % 0.2 % (0-4); Immature Platelets 1.4 % (1.1-6.1); Lymphocytes # 3.8 K/mcL (0.6-4.6); Lymphocytes % 37.1 %; Mean Corpuscular HGB Conc 32.5 g/dL (31.6-35.5); Mean Corpuscular Hemoglobin 29.8 pg (28.0-33.3); Mean Corpuscular Volume 91.6 fL (83.0-100.0); Monocytes # 0.4 K/mcL (0.0-1.3); Neutrophils # 5.9 K/mcL (1.6-8.9); Platelet Count 348 K/mcL (140-400); Red Cell Distribution Width 14.3 % (11.5-14.5); Segmented Neutrophils % 57.2 %
[2018-11-14 06:17] LABS: BUN/Creatinine Ratio 15 (6-26); Blood Urea Nitrogen 17 mg/dL (6-20); Calcium 9.2 mg/dL (8.6-10.3); Carbon Dioxide 26 mEq/L (23-29); Chloride 101 mEq/L (98-107); Glucose 120 mg/dL (70-105); Osmolality,Calculated 285 (280-300); Potassium 3.7 mEq/L (3.5-5.1); Sodium 136 mEq/L (136-145); eGFR For Non-African Americans > 60 (> 60)
[2018-11-14] MEDS: Aspirin 81 MG TAB.CHEW PO SCH (07:52)
[2018-11-14] MEDS: Metoprolol XL (24 HR) Succ 25 MG TAB.ER.24H PO SCH (07:52)
[2018-11-14] MEDS: Furosemide 40 MG/4 ML VIAL IVP SCH (07:52)
[2018-11-14] MEDS: Heparin 25,000 UNIT/250 ML D5W 25,000 UNIT/250 ML IV.SOLN IVC SCH (07:57)
--- NOTE | 2018-11-14 08:25 | Internal Med Progress Note ---
Hospitalist Progress Note - Encounter Date of Encounter: 11/14/18 - Exam Vitals: Temp Pulse Resp BP Pulse Ox 98.0 F 103 17 115/82 92 11/14/18 04:05 11/14/18 07:51 11/14/18 07:51 11/14/18 07:51 11/14/18 07:51 Exam: General: Conversant, no acute distress Head: atraumatic, normocephalic Eye: PERRL, EOMI, conjuntiva pink, sclera anicteric Neck: Supple, trachea midline; No lymphadenopathy Respiratory: Shortened inspiratory phase. No accessory muscle use, wheezes, rales, or rhonchi Cardiovascular: RRR, +S1, +S2; no murmurs, rubs, gallops Abdomen: Soft, nontender Extremities: warm, radial pulses palpable and symmetrical Psychiatric: Normal affect, normal mood Skin: Dry, intact - Assessment and Plan (1) HFrEF (heart failure with reduced ejection fraction) Current Visit: Yes Status: Acute Assessment and Plan: - Patient was recently diagnosed with dilated cardiomyopathy - Severely reduced ejection fraction of 20%; LV function globally reduced - Initially presented with lower extremity edema - CXR on admission: interstitial pulmonary edema, enlarged cardiac silhouette - CTA on admission: Cardiomegaly with pulmonary edema, moderate right, small left pleural effusion - BNP was elevated on presentation at 1595 - [facility] was completed on 11/13; no intervention was performed - Nonobstructive CAD was present; nonischemic cardiomyopathy - Cardiology recommends medical management; recommends starting Entresto - Prescription was sent [employer] for de [place] torre check - Will start patient on PO Lasix today Plan: - Strict intake and output, daily weights - Currently on 2 L fluid restriction daily - Low-dose beta monica has been started; metoprolol XL 12.5 mg by mouth daily - Currently on aspirin and statin (2) Elevated troponin Current Visit: Yes Status: Acute Assessment and Plan: - Initially presented with chest pain of several days duration - Troponin levels: 07, 0.06, 0.09, 0.08 - Urine drug screen was positive for amphetamines - LHC was performed; no evidence of ischemia, no intervention was performed (3) Tachycardia Current Visit: Yes Status: Acute Assessment and Plan: - Unknown etiology at this time - Heart rate has been approximately 100-120 since admission - CTA of the chest was negative for PE - Was started on low-dose beta monica, metoprolol XL 12.5 mg by mouth daily (4) Coronary artery disease Current Visit: Yes Status: Acute Assessment and Plan: - Continue aspirin, statin, and beta monica - Time Spent with Patient Total time spent is greater than 50% in coordination of care (as documented) at patient's floor/unit and/or counseling patient: Internal Medicine: Result - Labs CBC & Chem 7: 11/14/18 05:35 11/14/18 05:35 Labs: Short CBC 11/14/18 Range/Units 05:35 WBC 10.3 (4.3-11.1) K/mcL Hgb 14.6 (12.9-16.9) g/dL Hct 44.9 (37.5-50.1) % Plt Count 348 (140-400) K/mcL Neutrophils # 5.9 (1.6-8.9) K/mcL BMP 11/14/18 05:35 Sodium 136 Potassium 3.7 Chloride 101 Carbon Dioxide 26 BUN 17 Creatinine 1.17 Glucose 120 H Calcium 9.2 Cardiac Enzymes 11/13/18 Range/Units 22:00 Troponin I 0.49 H* (< 0.04) ng/mL - ABG Interpretation ABG results: PT/INR, D-dimer PT 13.9 Seconds (9.4-12.1) H 11/12/18 08:04 678 ng/mLFEU (0-500) H 11/12/18 06:12 - Impressions Impressions Gallbladder Ultrasound 11/13/18 08:00 IMPRESSION: Unremarkable right upper quadrant ultrasound. D/ / Barrett Kurtz MD / Barrett Kurtz MD Interpreting Provider: Barrett Kurtz MD Consult Discharge Plan - Plan Referrals: NONE,PCP [Primary Care Provider] - Prescriptions: Sacubitril/Valsartan 24/26 mg [Entresto 24 mg-26 mg Tablet] 1 each PO BID #60 tablet (1) HFrEF (heart failure with reduced ejection fraction) Qualifiers: Heart failure chronicity: acute on chronic Qualified Code(s): I50.23 - Acute on chronic systolic (congestive) heart failure
--- NOTE | 2018-11-14 10:18 | Cardiology Progress Note ---
Date of Encounter: 11/14/18 Time of Encounter: 10:15 Assessment and Plan (1) HFrEF (heart failure with reduced ejection fraction) Current Visit: Yes Status: Acute Per Cardiology: Patient recently diagnosed with a severely reduced EF of 20%. S/P LHC-- no intervention performed. On IV Lasix 40 mg twice daily-- euvolemic on exam and Net I&O -900ml. Will switch to PO lasix 40mg PO BID. Monitor strict I's and O's, daily weights, fluid restriction. Reinforced home daily exercise and weight loss, low sodium diet, 2 L daily fluid restriction. Entresto rejected by insurance, needs prior auth., will pursue with office in outpatient setting. BB titrated for HR optimization. Consider addition of ACEI/ARB and/or aldactone prior to DC if able to add. Recommend continue titrating BB for now as able and needed for EF and HR optimization. Discussed and reviewed with Dr. Pitt, cardiology will sign off, re-consult PRN, f/u arranged. Qualifiers: Heart failure chronicity: acute on chronic Qualified Code(s): I50.23 - Acute on chronic systolic (congestive) heart failure (2) Coronary artery disease Current Visit: Yes Status: Acute Per Cardiology: C: Impressions: There is moderate two vessel coronary artery disease. FFR Measurement: 0.82 The left ventricle is normal and has severely Abnormal contractility EF 20% Lesion Findings/Interventions * Left Main Coronary Artery The LMCA is angiographically free of disease. * Left Anterior Descending There is a 65% stenosis in the Mid LAD. The lesion has a SAMANTA flow of 3. * Circumflex There is a 50% stenosis in the Mid Circumflex. The lesion has a SAMANTA flow of 3. * Right Coronary Artery The RCA is angiographically free of disease. The Right PDA is angiographically free of disease. CP free. On asa, statin, BB, Hep gtt.-- will DC IV Hep gtt. SR 90's - 100's on tele; will titrate BB. Recommend continue BB titration as able or needed. Qualifiers: Coronary Disease-Associated Artery/Lesion type: [place] artery [place] vs. transplanted heart: [place] heart Associated angina: without angina Qualified Code(s): I25.10 - Atherosclerotic heart disease of [place] coronary artery without angina pectoris Discussion w patient/family: The assessment and plan as outlined above was discussed with the patient and/or family members who expressed understanding and agreement. All questions were answered. Thank you for involving us in the care of your patient. Please call with any questions. Subjective Principal diagnosis: CHF, CMP Interval history: Seen today with family at bedside. Denies any concerns over night. Reports short of breath and edema to lower extremities have drastically improved. Denies any chest pain or palpitations. Denies any concerns with his right groin site. Objective Vital Signs, Last 4 Hours Pulse Resp BP Pulse Ox 11/14/18 07:51 103 17 115/82 92 General: Conversant, No Apparent Distress HEENT: Atraumatic, Normocephaly, Mucus Membranes Moist Neck: No JVD, Normal carotid pulses Cardiac: Reg Rate and Rhythm, Normal S1 and S2, No Murmur Lungs: Normal Breath Sounds, No Wheeze, Rales, Rhonchi Neuro: Alert and responsive, No focal deficits noted Abdomen: Soft, Non-Tender Skin: No rashes noted on visualized skin, Other (Right groin site, intact, no hematoma, no ecchymosis, no bleeding, right PT and DP pulses 2+ palpable) Musculoskeletal: No Chest Wall Tenderness Extremities: No Clubbing, No Cyanosis, No Edema, Normal Pulses Results 11/14/18 05:35 11/14/18 05:35 Lab Results Laboratory Tests 11/12/18 11/13/18 11/14/18 12:57 22:00 05:35 Hgb 14.6 Hct 44.9 Creatinine Est GFR (Non-Af Amer) Troponin I 0.49 H* Ur Amphetamines Screen Positive H 11/14/18 05:35 Hgb Hct Creatinine 1.17 Est GFR (Non-Af Amer) > 60 Troponin I Ur Amphetamines Screen Intake & Output 11/11/18 11/12/18 11/13/18 11/14/18 23:59 23:59 23:59 23:59 Intake Total 79 / 79 1271.0 / 1271.0 Output Total 0 / 0 1400 / 1400 850 / 850 Balance 79 / 79 -129.0 / -129.0 -850 / -850 Weight 98.3 kg 98.3 kg 98.2 kg Active Medications Aspirin (Aspirin) 81 mg PO DAILY CHINO Stop: 05/14/19 10:31 Last Admin: 11/14/18 07:52 Dose: 81 mg Documented by: Atorvastatin Calcium (Lipitor) 40 mg PO HS CHINO Stop: 05/14/19 21:01 Last Admin: 11/13/18 21:38 Dose: 40 mg Documented by: Furosemide (Lasix) 40 mg IVP BIDDIURETIC CHINO Stop: 05/14/19 10:31 Last Admin: 11/14/18 07:52 Dose: 40 mg Documented by: Heparin Sodium (Porcine) (Heparin) 4,000 unit IVP Q6HR PRN PRN Reason: SEE COMMENTS Stop: 05/14/19 07:00 Heparin Sodium (Porcine) (Heparin) 2,000 unit IVP Q6H PRN PRN Reason: SEE COMMENTS Stop: 05/14/19 07:00 Last Admin: 11/13/18 13:52 Dose: 2,000 unit Documented by: Heparin Sodium/Dextrose (Heparin 25,000 Unit/250 Ml D5w) 25,000 unit in 250 mls @ 9.954 mls/hr IVC .Q24H CHINO; Protocol Stop: 05/14/19 07:01 Last Admin: 11/14/18 07:57 Dose: 15.18 unit/kg/hr, 16.4 mls/hr Documented by: Metoprolol Succinate (Toprol Xl) 12.5 mg PO DAILY CHINO Stop: 05/15/19 09:01 Last Admin: 11/14/18 07:52 Dose: 12.5 mg Documented by: Naloxone HCl (Narcan) 0.4 mg IVP Q2MPRN PRN PRN Reason: SEE COMMENTS Stop: 05/14/19 08:09 Nitroglycerin (Nitroglycerin) 0.4 mg SL Q5MPRN PRN PRN Reason: Chest Pain Stop: 05/14/19 10:21 Last Admin: 11/13/18 16:15 Dose: 0.4 mg Documented by: Pantoprazole Sodium (Protonix) 40 mg IVP DAILY CHINO Stop: 05/15/19 23:46 Last Admin: 11/14/18 07:52 Dose: 40 mg Documented by: Tramadol HCl (Ultram) 100 mg PO TID PRN PRN Reason: Pain Stop: 05/15/19 19:43 Last Admin: 11/13/18 21:38 Dose: 100 mg Documented by: - Imaging and Cardiology Echo: report reviewed Cardiac cath: report reviewed Consult Discharge Plan - Plan Referrals: NONE,PCP [Primary Care Provider] - Prescriptions: Sacubitril/Valsartan 24/26 mg [Entresto 24 mg-26 mg Tablet] 1 each PO BID #60 tablet
[2018-11-14] MEDS ORDERED: Metoprolol XL (24 HR) Succ 25 MG TAB.ER.24H PO ONE (10:30)
[2018-11-14] MEDS ORDERED: Nicotine 21 MG PATCH.TD24 TD PRN (10:43)
[2018-11-14 11:39] VITALS: BP 100/72
--- NOTE | 2018-11-14 14:17 | Discharge Summary ---
<Joe Bethea - Last Filed: 11/14/18 14:24> - NOTES TO OUTPATIENT PROVIDER Notes to Outpatient Provider: Patient will need close follow-up with primary care and cardiology in the outpatient setting. Recommend BMP in 1 week. Cardiology recommends that patient be started on Entresto. De La Torre check was performed at [facility]; medication was denied without a physician's prior authorization. Also has been started on ASA, Statin, metoprolol, and lasix. Orders not resulted at time of discharge: Pending orders 11/15/18 05:30 Heparin anti-factor XA UFH [COAG] ONCE Date of Encounter: 11/14/18 Time of Encounter: 08:45 - Discharge Diagnosis (1) HFrEF (heart failure with reduced ejection fraction) Priority: Primary Status: Acute Qualifiers: Heart failure chronicity: acute on chronic Qualified Code(s): I50.23 - Acute on chronic systolic (congestive) heart failure (2) Elevated troponin Priority: Secondary Status: Acute (3) Tachycardia Priority: Secondary Status: Acute (4) Coronary artery disease Priority: Secondary Status: Acute Qualifiers: Coronary Disease-Associated Artery/Lesion type: [place] artery [place] vs. transplanted heart: [place] heart Associated angina: without angina Qualified Code(s): I25.10 - Atherosclerotic heart disease of [place] coronary artery without angina pectoris Hospital course: Mr. Vargas is a 43 year old male who presented to [facility] ED on 11/12/18 with a chief complaint of ongoing retrosternal/epigastric pain. He had initially been admitted as a transfer from [facility] on 10/31/18. He had an elevated troponin at that time of 0.158 per review of previous records. CTA of the chest at the time demonstrated dilated cardiomyopathy. Patient had no previous known diagnosis of cardiomyopathy. A CT of the abdomen was performed, and demonstrated a possible cholecystitis. Echocardiogram demonstrated an ejection fraction of 20% with global hypokinesis. Originally, patient was scheduled to undergo a left heart catheterization on November 01, but he left AMA. He re-presented on 11/12 reporting continuing chest pain with exertional component. He had also developed bilateral lower extremity edema and bilateral lower extremity pain. He admitted to smoking tobacco and marijuana. Workup in the emergency department was significant for an elevated BNP at 1595, and an elevated troponin 0.07. He was started on a heparin drip, and cardiology was consulted. Vital signs demonstrated tachycardia. Chest x-ray showed pulmonary edema. CTA of the chest was negative for pulmonary embolism. EKG demonstrated mild ST elevations in leads V2 and V3, and a heart rate of 111 bpm. Patient was started on Lasix, and was placed on a 2 L fluid restriction. A low-dose beta monica was started; metoprolol XL 12.5 mg by mouth daily. Also was placed on aspirin and a statin. Troponin was trended, and the levels were 0.07, 0.06, 0.09, 0.08. Of note, patients urine drug screen was positive for amphetamines. On interview, patient denied the use of illicit drugs since the early . Left heart catheterization was performed on 11/13, and no intervention was performed. Non- obstructive CAD was present; non-ischemic cardiomyopathy. Cardiology recommended medical management. They recommended starting Entresto. A de la torre check was performed through the patients pharmacy, and it would not be approved without a prior authorization. During his stay in the hospital, patient was treated with 40 mg Lasix IV twice a day. Patient will be sent home on 40 mg Lasix by mouth daily. He will need close follow-up in the outpatient setting with both primary care and with cardiology. On date of discharge, patient states that he is feeling well. He does not have any lower extremity edema. He denies having any shortness of breath, chest pain, nausea, vomiting, diaphoresis, visual disturbances, headache, or palpitations. He has no complaints at this time. - Time Spent with Patient Total time spent providing and/or coordinating discharge services: Time spent: Greater than 30 minutes (41 minutes) - Discharge Medications Prescriptions: New Sacubitril/Valsartan 24/26 mg [Entresto 24 mg-26 mg Tablet] 1 each PO BID #60 tablet Aspirin 81 mg PO DAILY 30 Days #30 tab.chew Furosemide [Lasix] 40 mg PO DAILY #7 tablet Atorvastatin [Lipitor] 40 mg PO HS 30 Days #30 tablet Metoprolol XL (24 HR) Succ [Toprol Xl] 25 mg PO DAILY #30 tab.er.24h Sacubitril/Valsartan 24/26 mg [Entresto 24 mg-26 mg Tablet] 1 each PO BID #60 tablet Furosemide [Lasix] 40 mg PO DAILY 30 Days #30 tab Home Medications: Sacubitril/Valsartan 24/26 mg [Entresto 24 mg-26 mg Tablet] 1 each PO BID #60 tablet 11/13/18 [Rx] Aspirin 81 mg PO DAILY 30 Days #30 tab.chew 11/14/18 [Rx] Atorvastatin [Lipitor] 40 mg PO HS 30 Days #30 tablet 11/14/18 [Rx] Furosemide [Lasix] 40 mg PO DAILY #7 tablet 11/14/18 [Rx] Furosemide [Lasix] 40 mg PO DAILY 30 Days #30 tab 11/14/18 [Rx] Metoprolol XL (24 HR) Succ [Toprol Xl] 25 mg PO DAILY #30 tab.er.24h 11/14/18 [Rx] Sacubitril/Valsartan 24/26 mg [Entresto 24 mg-26 mg Tablet] 1 each PO BID #60 tablet 11/14/18 [Rx] Allergies/Adverse Reactions: Allergy/AdvReac Type Severity Reaction Status Date / Time No Known Allergies Allergy Verified 11/12/18 16:07 Date of admission: 11/12/18 08:09 Primary care physician: PCP NONE Consults: 11/12/18 08:06 Consult to Cardiology [CONS] Routine Comment: Consulting Provider: Cardiology [place] Reason for Consult: chest pain with new dilated cardiomyopathy. Supposed to get cath last week but signed out AMA Call Completed: No 11/14/18 10:36 Consult to Cardiac Rehabilitation-Phase1 [CONS] Routine Comment: Reason for Consult: new CHF, CMP, moderate CAD, mild trop Call Completed: No Discharging clinician: Joe Bethea Anticipated date of discharge: 11/14/18 - Constitutional Vitals: Temp Pulse Resp BP Pulse Ox 98.0 F 105 16 100/72 97 11/14/18 04:05 11/14/18 11:36 11/14/18 11:36 11/14/18 11:36 11/14/18 11:36 Exam: General: Conversant, no acute distress Head: atraumatic, normocephalic Eye: PERRL, EOMI, conjuntiva pink, sclera anicteric Neck: Supple, trachea midline; No lymphadenopathy Respiratory: Shortened inspiratory phase. No accessory muscle use, wheezes, rales, or rhonchi Cardiovascular: RRR, +S1, +S2; no murmurs, rubs, gallops Abdomen: Soft, nontender Extremities: warm, radial pulses palpable and symmetrical Psychiatric: Normal affect, normal mood Skin: Dry, intact - Patient Status Disposition: Home, Self-Care Condition: Fair Overall status at discharge: patient is progressing back to baseline - Discharge Instructions Instructions: Heart Failure (DC), Chest Pain (DC), Pneumonia (DC) Follow Up With: NONE,PCP [Primary Care Provider] - - Diet and Activity Activity: increase activity as tolerated Diet: low salt diet <Grady Torres - Last Filed: 11/14/18 17:45> Date of Encounter: 11/14/18 - Discharge Diagnosis (1) Tobacco abuse Status: Acute (2) Dilated cardiomyopathy Status: Acute (3) DVT prophylaxis Status: Acute (4) Chest pain Status: Acute Qualifiers: Chest pain type: unspecified Qualified Code(s): R07.9 - Chest pain, unspecified (5) Acute systolic CHF (congestive heart failure) Status: Acute Hospital course: Mr. Vargas is a 43 year old male - Time Spent with Patient Total time spent providing and/or coordinating discharge services: Date of admission: 11/12/18 08:09 Primary care physician: PCP NONE Consults: 11/12/18 08:06 Consult to Cardiology [CONS] Routine Comment: Consulting Provider: Cardiology [place] Reason for Consult: chest pain with new dilated cardiomyopathy. Supposed to get cath last week but signed out AMA Call Completed: No 11/14/18 10:36 Consult to Cardiac Rehabilitation-Phase1 [CONS] Routine Comment: Reason for Consult: new CHF, CMP, moderate CAD, mild trop Call Completed: No - Constitutional Vitals: Temp Pulse Resp BP Pulse Ox 98.0 F 105 16 100/72 97 11/14/18 04:05 11/14/18 11:36 11/14/18 11:36 11/14/18 11:36 11/14/18 11:36 - Attending Attestation I examined this patient and my medical decision-making was reviewed with the Resident Physician. I agree with the documented findings, disposition and treatment plan as described except to the extent set forth below.
--- NOTE | 2018-11-14 15:53 | Electrocardiograph Report ---
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
[2018-11-14] MEDS ORDERED: Furosemide 40 MG TABLET PO SCH (17:00)
[2018-11-15] MEDS ORDERED: Metoprolol XL (24 HR) Succ 25 MG TAB.ER.24H PO SCH (09:00)
== END 2018-11-14 14:35 | disposition home or self-care (01) ==
LOC: 3BNU 06:15 → EMEROOARM 06:15 → SUATTDRO 08:09 → 3BNU 09:08 → 2NENU 18:25
PROVIDERS: ADMIT Student in an Organized Health Care Education/Training Program; ATTEND Student in an Organized Health Care Education/Training Program

== ENCOUNTER 2020-06-10 12:40 | Observation (INO) ==
[2020-06-10] MEDS ORDERED: Ondansetron 4 MG/2 ML VIAL IVP ONE ×3 (12:50→18:00)
[2020-06-10 13:21] LABS: Basophils % 0.3 %; Eosinophils % 0.2 %; Hematocrit 40.4 % (37.5-50.1); Hemoglobin 12.8 g/dL (12.9-16.9); Immature Granulocytes % 0.6 % (0-4); Lymphocytes # 1.9 K/mcL (0.6-4.6); Lymphocytes % 15.3 %; Mean Corpuscular HGB Conc 31.7 g/dL (31.6-35.5); Mean Corpuscular Hemoglobin 28.6 pg (28.0-33.3); Mean Corpuscular Volume 90.2 fL (83.0-100.0); Mean Platelet Volume 8.8 fL (9.4-12.4); Monocytes # 0.6 K/mcL (0.0-1.3); Monocytes % 4.6 %; Neutrophils # 9.9 K/mcL (1.6-8.9); Platelet Count 338 K/mcL (140-400); Red Blood Count 4.48 M/mcL (4.19-5.50); Red Cell Distribution Width 13.8 % (11.5-14.5); White Blood Count 12.5 K/mcL (4.3-11.1)
[2020-06-10 13:26] LABS: INR 1.2; Prothrombin Time 13.8 Seconds (9.4-12.1)
[2020-06-10] MEDS ORDERED: Isovue-370 500 ML BOTTLE IVP ONE (13:42)
[2020-06-10 13:46] LABS: Alanine Aminotransferase 15 Units/L (7-52); Albumin 3.9 g/dL (3.5-5.7); Albumin/Globulin Ratio 1.4 (1.1-2.2); Alkaline Phosphatase 104 Units/L (34-104); Aspartate Amino Transferase 15 Units/L (13-39); BUN/Creatinine Ratio 17 (6-26); Bilirubin,Direct 0.2 mg/dL (0.0-0.2); Bilirubin,Indirect 0.9 mg/dL (0.0-1.0); Bilirubin,Total 1.1 mg/dL (0.3-1.0); Blood Urea Nitrogen 18 mg/dL (6-20); C-Reactive Protein 9 mg/L (Less than 10); Calcium 8.7 mg/dL (8.6-10.3); Carbon Dioxide 22 mEq/L (23-29); Chloride 102 mEq/L (98-107); Globulin 2.8 g/dL (2.4-3.5); Glucose 119 mg/dL (70-105); Magnesium 1.8 mg/dL (1.6-2.6); Osmolality,Calculated 281 (280-300); Potassium 4.1 mEq/L (3.5-5.1); Sodium 134 mEq/L (136-145); Total Protein 6.7 g/dL (6.4-8.9); eGFR For African Americans > 60 (> 60); eGFR For Non-African Americans > 60 (> 60)
[2020-06-10] MEDS ORDERED: Aspirin 81 MG TAB.CHEW PO ONE (13:46)
[2020-06-10] MEDS ORDERED: *HR* FentaNYL (PF) 100 MCG/2 ML VIAL IVP ONE (14:39)
[2020-06-10] MEDS ORDERED: Azithromycin 500 MG in 0.9 % Sodium Chloride 250 ML IVPB ONE (15:56)
[2020-06-10] MEDS ORDERED: cefTRIAXone 1,000 MG in 0.9 % Sodium Chloride Mini Bag 100 ML IVPB ONE (15:56)
[2020-06-10] MEDS ORDERED: Furosemide 40 MG/4 ML VIAL IVP ONE (15:56)
[2020-06-10 16:27] LABS: Adenovirus Not Detected (Not Detect); Bordetella Pertussis Not Detected (Not Detect); Chlamydophila pneumoniae Not Detected (Not Detect); Coronavirus 229E Not Detected (Not Detect); Coronavirus HKU1 Not Detected (Not Detect); Coronavirus NL63 Not Detected (Not Detect); Coronavirus OC43 Not Detected (Not Detect); Human Metapneumovirus Not Detected (Not Detect); Human Rhinovirus/Enterovirus DETECTED (Not Detect); Influenza A Subtype 2009 H1 Not Detected (Not Detect); Influenza B Not Detected (Not Detect); Mycoplasma pneumoniae Not Detected (Not Detect); Parainfluenza Virus 1 Not Detected (Not Detect); Parainfluenza Virus 2 Not Detected (Not Detect); Parainfluenza Virus 3 Not Detected (Not Detect); Parainfluenza Virus 4 Not Detected (Not Detect); Respiratory Syncytial Virus Not Detected (Not Detect); SARS-CoV-2 Not Detected (Not Detect)
[2020-06-10] MEDS ORDERED: *HR* HYDROmorphone 2 MG/ML SYRINGE IVP STA ×2 (17:33→17:53)
[2020-06-10 17:46] LABS: Bilirubin,Urine Negative (Negative); Blood,Urine Negative (Negative); Clarity,Urine Clear (Clear); Color,Urine Light-Yellow (Yellow); Glucose,Urine (UA) Normal (Normal); Ketones,Urine Negative (Negative); Leukocyte Esterase,Urine Negative (Negative); Nitrite,Urine Negative (Negative); PH,Urine 6.5 pH Units (5.0-8.0); Protein,Urine Negative (Neg-Trace); Specific Gravity,Urine 1.025 (1.010-1.025); Urobilinogen,Urine Normal (Normal)
[2020-06-10] MEDS ORDERED: Ondansetron 4 MG/2 ML VIAL ONE (17:56)
[2020-06-10] MEDS ORDERED: Ondansetron 4 MG/2 ML VIAL IVP PRN (18:00)
[2020-06-10] MEDS ORDERED: Naloxone 0.4 MG/ML INJ IVP PRN (18:00)
[2020-06-10] MEDS ORDERED: Ipratropium/Albuterol Neb 3 ML IH PRN (18:06)
[2020-06-10 18:15] LABS: Amphetamine Screen,Urine Positive ng/mL (Cutoff=1000); Barbiturate Screen,Urine Negative ng/mL (Cutoff=200); Benzodiazepines Screen,Urine Negative ng/mL (Cutoff=200); Cannabinoid Screen,Urine Negative ng/mL (Cutoff = 50); Cocaine Screen,Urine Negative ng/mL (Cutoff= 300); Opiate Screen,Urine Negative ng/mL (Cutoff=300); Phencyclidine Screen,Urine Negative ng/mL (Cutoff=25)
[2020-06-10] MEDS ORDERED: *HR* Heparin 5,000 UNIT/ML VIAL IVP ONE (19:00)
[2020-06-10] MEDS ORDERED: *HR* Heparin 5,000 UNIT/ML VIAL IVP PRN (19:00)
[2020-06-10] MEDS ORDERED: Perflutren Lipid Microsphere 1.3 ML in 0.9 % Sodium Chloride 8.7 ML IVP PRN (19:01)
[2020-06-10] MEDS: Heparin 25,000UNIT/250ML 1/2NS 25,000 UNIT/250 ML IV.SOLN IVC SCH (20:46)
[2020-06-10 21:36] LABS: Hematocrit 38.7 % (37.5-50.1); Hemoglobin 12.3 g/dL (12.9-16.9); Mean Corpuscular HGB Conc 31.8 g/dL (31.6-35.5); Mean Corpuscular Hemoglobin 28.9 pg (28.0-33.3); Mean Corpuscular Volume 91.1 fL (83.0-100.0); Platelet Count 301 K/mcL (140-400); Red Blood Count 4.25 M/mcL (4.19-5.50); Red Cell Distribution Width 13.8 % (11.5-14.5); White Blood Count 11.4 K/mcL (4.3-11.1)
[2020-06-10 21:41] LABS: INR 1.2; Prothrombin Time 14.2 Seconds (9.4-12.1)
[2020-06-10 21:43] LABS: Activated Partial Thrombo Time 24.6 Seconds (26.0-36.0)
[2020-06-11] MEDS ORDERED: Nitroglycerin 0.4 MG TAB.SUBL SL PRN (02:39)
[2020-06-11] MEDS: Nitroglycerin 0.4 MG TAB.SUBL SL PRN ×3 (02:53→12:18)
[2020-06-11 03:33] LABS: Basophils % 0.3 %; Eosinophils % 0.2 %; Hematocrit 37.2 % (37.5-50.1); Hemoglobin 11.7 g/dL (12.9-16.9); Immature Granulocytes % 0.3 % (0-4); Lymphocytes # 1.9 K/mcL (0.6-4.6); Lymphocytes % 16.6 %; Mean Corpuscular HGB Conc 31.5 g/dL (31.6-35.5); Mean Corpuscular Hemoglobin 28.7 pg (28.0-33.3); Mean Corpuscular Volume 91.4 fL (83.0-100.0); Mean Platelet Volume 9.1 fL (9.4-12.4); Monocytes # 0.6 K/mcL (0.0-1.3); Monocytes % 5.2 %; Platelet Count 258 K/mcL (140-400); Red Blood Count 4.07 M/mcL (4.19-5.50); Red Cell Distribution Width 13.9 % (11.5-14.5); Segmented Neutrophils % 77.4 %; White Blood Count 11.6 K/mcL (4.3-11.1)
[2020-06-11] MEDS ORDERED: Furosemide 40 MG/4 ML VIAL IVP ONE (03:34)
[2020-06-11 03:50] LABS: BUN/Creatinine Ratio 17 (6-26); Blood Urea Nitrogen 20 mg/dL (6-20); Calcium 8.1 mg/dL (8.6-10.3); Carbon Dioxide 20 mEq/L (23-29); Chloride 101 mEq/L (98-107); Glucose 102 mg/dL (70-105); Magnesium 1.8 mg/dL (1.6-2.6); Osmolality,Calculated 279 (280-300); Potassium 4.1 mEq/L (3.5-5.1); Sodium 133 mEq/L (136-145); eGFR For African Americans > 60 (> 60); eGFR For Non-African Americans > 60 (> 60)
[2020-06-11 03:54] LABS: VBG HCO3 22 mEq/L (21-27); VBG PCO2 29 mmHg (41-51); VBG PH 7.48 pH Units (7.32-7.42); VBG PO2 219 mmHg (25-50)
[2020-06-11] MEDS: *HR* Heparin 5,000 UNIT/ML VIAL IVP PRN ×2 (05:22→13:58)
[2020-06-11] MEDS ORDERED: Perflutren Lipid Microsphere 1.3 ML in 0.9 % Sodium Chloride 8.7 ML IVP PRN (07:31)
[2020-06-11] MEDS ORDERED: Dexamethasone 4 MG/ML VIAL IVP SCH (09:00)
[2020-06-11] MEDS ORDERED: Pantoprazole 40 MG VIAL IVP SCH (09:00)
[2020-06-11] MEDS: Metoprolol XL (24 HR) Succ 25 MG TAB.ER.24H PO SCH (09:07)
[2020-06-11] MEDS: Acetaminophen 325 MG TABLET PO PRN ×2 (12:04→20:09)
[2020-06-11] MEDS: Sacubitril/Valsartan 24/26 MG 1 TABLET PO SCH ×2 (12:04→20:04)
[2020-06-11] MEDS: Aspirin Enteric Coated 81 MG Tablet PO SCH (12:04)
[2020-06-11] MEDS ORDERED: Furosemide 20 MG/2 ML VIAL IVP ONE (12:20)
[2020-06-11] MEDS: Heparin 25,000UNIT/250ML 1/2NS 25,000 UNIT/250 ML IV.SOLN IVC SCH (18:31)
[2020-06-12 01:24] LABS: Basophils # 0.1 K/mcL (0.0-0.2); Basophils % 0.9 %; Eosinophils # 0.1 K/mcL (0.0-0.6); Eosinophils % 1.4 %; Hemoglobin 12.9 g/dL (12.9-16.9); Immature Granulocytes % 0.5 % (0-4); Lymphocytes % 24.9 %; Mean Corpuscular HGB Conc 30.7 g/dL (31.6-35.5); Mean Corpuscular Hemoglobin 28.5 pg (28.0-33.3); Mean Corpuscular Volume 92.7 fL (83.0-100.0); Mean Platelet Volume 8.9 fL (9.4-12.4); Monocytes # 0.4 K/mcL (0.0-1.3); Monocytes % 4.7 %; Neutrophils # 5.5 K/mcL (1.6-8.9); Nucleated Red Blood Cells 0.4 /100 WBC (0); Platelet Count 269 K/mcL (140-400); Red Blood Count 4.53 M/mcL (4.19-5.50); Red Cell Distribution Width 14.1 % (11.5-14.5); Segmented Neutrophils % 67.6 %; White Blood Count 8.1 K/mcL (4.3-11.1)
[2020-06-12 01:38] LABS: BUN/Creatinine Ratio 19 (6-26); Blood Urea Nitrogen 20 mg/dL (6-20); Calcium 8.6 mg/dL (8.6-10.3); Carbon Dioxide 24 mEq/L (23-29); Chloride 102 mEq/L (98-107); Glucose 119 mg/dL (70-105); Magnesium 1.9 mg/dL (1.6-2.6); Osmolality,Calculated 282 (280-300); Potassium 3.6 mEq/L (3.5-5.1); Sodium 134 mEq/L (136-145); eGFR For African Americans > 60 (> 60); eGFR For Non-African Americans > 60 (> 60)
[2020-06-12] MEDS: *HR* Heparin 5,000 UNIT/ML VIAL IVP PRN (02:27)
[2020-06-12 08:45] VITALS: BP 96/63
[2020-06-12] MEDS: Metoprolol XL (24 HR) Succ 25 MG TAB.ER.24H PO SCH (09:15)
[2020-06-12] MEDS: Aspirin Enteric Coated 81 MG Tablet PO SCH (09:15)
[2020-06-12] MEDS: Sacubitril/Valsartan 24/26 MG 1 TABLET PO SCH (09:33)
== END 2020-06-12 10:24 | disposition home or self-care (01) ==
LOC: 2ANU 12:40 → EMEROOARM 12:40 → SUATTDRO 17:38 → 2ANU 18:22
PROVIDERS: ADMIT Pharmacist; ATTEND Internal Medicine

== ENCOUNTER 2020-09-07 00:44 | Observation (INO) ==
[2020-09-07] MEDS ORDERED: Ipratropium/Albuterol Neb 3 ML IH ONE (00:47)
[2020-09-07 01:27] LABS: Basophils # 0.1 K/mcL (0.0-0.2); Basophils % 0.4 %; Hemoglobin 12.2 g/dL (12.9-16.9); Immature Granulocytes % 0.4 % (0-4); Lymphocytes # 2.2 K/mcL (0.6-4.6); Lymphocytes % 18.8 %; Mean Corpuscular HGB Conc 32.1 g/dL (31.6-35.5); Mean Corpuscular Hemoglobin 26.3 pg (28.0-33.3); Mean Corpuscular Volume 81.9 fL (83.0-100.0); Mean Platelet Volume 8.9 fL (9.4-12.4); Monocytes # 0.7 K/mcL (0.0-1.3); Monocytes % 5.9 %; Neutrophils # 8.6 K/mcL (1.6-8.9); Nucleated Red Blood Cells 0.3 /100 WBC (0); Platelet Count 375 K/mcL (140-400); Red Blood Count 4.64 M/mcL (4.19-5.50); Red Cell Distribution Width 18.6 % (11.5-14.5); Segmented Neutrophils % 74.5 %; White Blood Count 11.5 K/mcL (4.3-11.1)
[2020-09-07 01:50] LABS: Calcium 9.2 mg/dL (8.6-10.3); Potassium 5.5 mEq/L (3.5-5.1)
[2020-09-07 01:52] LABS: Troponin I 0.13 ng/mL (< 0.04)
[2020-09-07] MEDS ORDERED: Isovue-370 500 ML BOTTLE IVP ONE (01:56)
[2020-09-07] MEDS ORDERED: Furosemide 40 MG/4 ML VIAL IVP ONE (01:56)
[2020-09-07 03:22] LABS: Adenovirus Not Detected (Not Detect); Bordetella Pertussis Not Detected (Not Detect); Chlamydophila pneumoniae Not Detected (Not Detect); Coronavirus 229E Not Detected (Not Detect); Coronavirus HKU1 Not Detected (Not Detect); Coronavirus NL63 Not Detected (Not Detect); Coronavirus OC43 Not Detected (Not Detect); Human Metapneumovirus Not Detected (Not Detect); Human Rhinovirus/Enterovirus Not Detected (Not Detect); Influenza A Subtype 2009 H1 Not Detected (Not Detect); Influenza B Not Detected (Not Detect); Mycoplasma pneumoniae Not Detected (Not Detect); Parainfluenza Virus 1 Not Detected (Not Detect); Parainfluenza Virus 2 Not Detected (Not Detect); Parainfluenza Virus 3 Not Detected (Not Detect); Parainfluenza Virus 4 Not Detected (Not Detect); Respiratory Syncytial Virus Not Detected (Not Detect); SARS-CoV-2 Not Detected (Not Detect)
[2020-09-07] MEDS ORDERED: Naloxone 0.4 MG/ML INJ IVP PRN (03:53)
[2020-09-07] MEDS ORDERED: Ondansetron 4 MG/2 ML VIAL IVP PRN (03:53)
[2020-09-07] MEDS ORDERED: Nitroglycerin 0.4 MG TAB.SUBL SL PRN (04:19)
[2020-09-07] MEDS ORDERED: Perflutren Lipid Microsphere 1.3 ML in 0.9 % Sodium Chloride 8.7 ML IVP PRN (04:22)
[2020-09-07 04:58] LABS: ABG Base Excess -4 mEq/L (-2 to 3); ABG HCO3 18 mEq/L (21-27); ABG Oxygen Saturation 98 % (95-98); ABG PCO2 26 mmHg (35-45); ABG PH 7.45 pH Units (7.32-7.45); ABG PO2 93 mmHg (85-104); ABG TCO2 19 mEq/L (20-26)
[2020-09-07 05:40] LABS: Basophils % 0.2 %; Hematocrit 37.6 % (37.5-50.1); Hemoglobin 12.1 g/dL (12.9-16.9); Immature Granulocytes % 0.6 % (0-4); Lymphocytes # 1.7 K/mcL (0.6-4.6); Lymphocytes % 14.3 %; Mean Corpuscular HGB Conc 32.2 g/dL (31.6-35.5); Mean Corpuscular Hemoglobin 26.5 pg (28.0-33.3); Mean Corpuscular Volume 82.5 fL (83.0-100.0); Monocytes # 0.8 K/mcL (0.0-1.3); Monocytes % 6.3 %; Neutrophils # 9.5 K/mcL (1.6-8.9); Nucleated Red Blood Cells 0.2 /100 WBC (0); Platelet Count 326 K/mcL (140-400); Red Blood Count 4.56 M/mcL (4.19-5.50); Segmented Neutrophils % 78.6 %
[2020-09-07] MEDS ORDERED: *HR* Heparin 5,000 UNIT/ML VIAL SQ SCH (06:00)
[2020-09-07 06:06] LABS: Albumin 3.8 g/dL (3.5-5.7); Albumin/Globulin Ratio 1.3 (1.1-2.2); Bilirubin,Total 4.2 mg/dL (0.3-1.0); Calcium 8.9 mg/dL (8.6-10.3); Potassium 4.2 mEq/L (3.5-5.1); Total Protein 6.8 g/dL (6.4-8.9); Troponin I 0.14 ng/mL (< 0.04)
[2020-09-07] MEDS ORDERED: Pantoprazole 40 MG VIAL IVP SCH (06:30)
[2020-09-07 07:22] LABS: INR 1.9
[2020-09-07] MEDS ORDERED: Furosemide 40 MG/4 ML VIAL IVP SCH ×2 (08:00→09:00)
[2020-09-07] MEDS ORDERED: Piperacillin/Tazobactam 3.375 GM in 0.9 % Sodium Chloride Mini Bag 100 ML IVPB SCH (08:00)
[2020-09-07] MEDS ORDERED: Albumin 25% 25gram/100mL 25 GM/100 ML IV.SOLN IVPB SCH (08:00)
[2020-09-07] MEDS ORDERED: Lactulose Oral Soln 20 GM/30 ML UDC PO SCH (09:00)
[2020-09-07] MEDS ORDERED: Aspirin Enteric Coated 81 MG Tablet PO SCH (09:00)
[2020-09-07 09:52] LABS: Bilirubin,Urine Negative (Negative); Blood,Urine Negative (Negative); Clarity,Urine Clear (Clear); Color,Urine Light-Yellow (Yellow); Glucose,Urine (UA) Normal (Normal); Ketones,Urine Negative (Negative); Leukocyte Esterase,Urine Negative (Negative); Nitrite,Urine Negative (Negative); PH,Urine 6.5 pH Units (5.0-8.0); Protein,Urine Negative (Neg-Trace); Specific Gravity,Urine 1.021 (1.010-1.025); Urobilinogen,Urine Normal (Normal)
[2020-09-07] MEDS ORDERED: Ipratropium/Albuterol Neb 3 ML IH SCH (10:00)
[2020-09-07 10:06] LABS: Hepatitis B Surface Antigen Nonreactive (Nonreactive)
[2020-09-07] MEDS ORDERED: Lactulose 200 GM, Sodium Chloride IRRigation 700 ML RC ONE (10:23)
[2020-09-07 10:35] LABS: Hepatitis B Core IgM Nonreactive (Nonreactive)
[2020-09-07 10:36] LABS: Hepatitis A Antibody IgM Nonreactive (Nonreactive); Hepatitis C Virus Antibody Nonreactive (Nonreactive)
[2020-09-07] MEDS ORDERED: *HR* Phytonadione 10 MG/ML AMPUL SQ ONE (11:23)
[2020-09-07] MEDS ORDERED: EPINEPHrine 1 MG in D5% in Water 250 ML IVC SCH (12:00)
[2020-09-07] MEDS ORDERED: Norepinephrine 4 MG/254 ML IV.SOLN IVC SCH (12:00)
[2020-09-07] MEDS ORDERED: Calcium Chloride 2,000 MG in 0.9 % Sodium Chloride 100 ML IVPB ONE (12:17)
[2020-09-07] MEDS ORDERED: Thiamine (B-1) 100 MG in 0.9 % Sodium Chloride 50 ML IVPB STA (12:17)
[2020-09-07] MEDS ORDERED: methylPREDNISolone 125 MG/2 ML VIAL IVP ONE (12:18)
[2020-09-07] MEDS ORDERED: MethylPREDNISolone 40 MG/ML VIAL ONE (12:27)
[2020-09-07] MEDS ORDERED: Thiamine (B-1) 200 MG/2 ML VIAL ONE (12:27)
[2020-09-07] MEDS ORDERED: Calcium Gluconate 1,000 MG/10 ML VIAL ONE (12:28)
[2020-09-07] MEDS ORDERED: Midazolam HCl 50 MG/100 ML IV.SOLN IVC SCH (12:30)
[2020-09-07] MEDS ORDERED: FentaNYL (PF) 1,000 MCG/100 ML IV.SOLN IVC SCH (12:30)
[2020-09-07] MEDS ORDERED: *HR* Dextrose 50 % in Water (Vial) 50 ML VIAL ONE (13:04)
[2020-09-07] MEDS ORDERED: *HR* Rocuronium Bromide 50 MG/5 ML VIAL IVP ONE (13:14)
[2020-09-07] MEDS ORDERED: *HR* Etomidate 40 MG/20 ML VIAL IVP ONE (13:14)
[2020-09-07] MEDS ORDERED: *HR* Midazolam HCl 5 MG/5 ML VIAL IVP ONE (13:14)
[2020-09-07 13:32] VITALS: BP 68/54
== END 2020-09-07 13:15 | disposition short-term general hospital (02) ==
LOC: 2NNU 00:44 → EMEROOARM 00:44 → 2NNU 03:45
PROVIDERS: ADMIT Family Medicine; ATTEND Family Medicine

== ENCOUNTER 2020-10-11 08:21 | Inpatient (IN) ==
[2020-10-11] MEDS ORDERED: Ondansetron 4 MG/2 ML VIAL IVP ONE (08:52)
[2020-10-11] MEDS ORDERED: Morphine Sulfate 2 MG/ML SYRINGE IVP ONE (08:52)
[2020-10-11 09:24] LABS: Basophils # 0.1 K/mcL (0.0-0.2); Basophils % 0.8 %; Eosinophils % 0.3 %; Hematocrit 33.9 % (37.5-50.1); Immature Granulocytes % 0.5 % (0-4); Lymphocytes # 2.1 K/mcL (0.6-4.6); Lymphocytes % 23.5 %; Mean Corpuscular HGB Conc 32.4 g/dL (31.6-35.5); Mean Corpuscular Volume 83.3 fL (83.0-100.0); Mean Platelet Volume 9.2 fL (9.4-12.4); Monocytes # 0.4 K/mcL (0.0-1.3); Neutrophils # 6.5 K/mcL (1.6-8.9); Nucleated Red Blood Cells 0.2 /100 WBC (0); Platelet Count 244 K/mcL (140-400); Red Blood Count 4.07 M/mcL (4.19-5.50); Red Cell Distribution Width 21.4 % (11.5-14.5); Segmented Neutrophils % 70.9 %; White Blood Count 9.1 K/mcL (4.3-11.1)
[2020-10-11 09:30] LABS: INR 1.5; Prothrombin Time 17.2 Seconds (9.4-12.1)
[2020-10-11 09:55] LABS: Alanine Aminotransferase 18 Units/L (7-52); Albumin 3.6 g/dL (3.5-5.7); Albumin/Globulin Ratio 1.1 (1.1-2.2); Alkaline Phosphatase 210 Units/L (34-104); Amylase 29 Units/L (29-103); Aspartate Amino Transferase 17 Units/L (13-39); BUN/Creatinine Ratio 26 (6-26); Bilirubin,Direct 0.8 mg/dL (0.0-0.2); Bilirubin,Indirect 1.2 mg/dL (0.0-1.0); Blood Urea Nitrogen 23 mg/dL (6-20); Calcium 9.2 mg/dL (8.6-10.3); Carbon Dioxide 21 mEq/L (23-29); Chloride 94 mEq/L (98-107); Globulin 3.3 g/dL (2.4-3.5); Glucose 160 mg/dL (70-105); Lipase 30 Units/L (11-82); Osmolality,Calculated 271 (280-300); Potassium 3.7 mEq/L (3.5-5.1); Sodium 127 mEq/L (136-145); Total Protein 6.9 g/dL (6.4-8.9); Troponin I 0.06 ng/mL (< 0.04); eGFR For African Americans > 60 (> 60); eGFR For Non-African Americans > 60 (> 60)
[2020-10-11] MEDS ORDERED: Isovue-370 500 ML BOTTLE IVP ONE (11:03)
[2020-10-11] MEDS ORDERED: *HR* FentaNYL (PF) 100 MCG/2 ML VIAL IVP ONE (13:47)
[2020-10-11] MEDS ORDERED: Piperacillin/Tazobactam 3.375 GM in 0.9 % Sodium Chloride Mini Bag 100 ML IVPB ONE (14:00)
[2020-10-11 15:08] LABS: Bilirubin,Urine Negative (Negative); Blood,Urine Negative (Negative); Clarity,Urine Clear (Clear); Color,Urine Yellow (Yellow); Glucose,Urine (UA) Normal (Normal); Ketones,Urine Negative (Negative); Leukocyte Esterase,Urine Negative (Negative); Nitrite,Urine Negative (Negative); Protein,Urine Trace mg/dL (Neg-Trace); Specific Gravity,Urine > 1.030 (1.010-1.025); Urobilinogen,Urine Normal (Normal)
[2020-10-11] MEDS ORDERED: Perflutren Lipid Microsphere 1.3 ML in 0.9 % Sodium Chloride 8.7 ML IVP PRN (16:25)
[2020-10-11] MEDS ORDERED: Naloxone 0.4 MG/ML INJ IVP PRN (16:31)
[2020-10-11] MEDS ORDERED: Melatonin 3 MG TABLET PO PRN (16:31)
[2020-10-11] MEDS ORDERED: Acetaminophen 325 MG TABLET PO PRN (16:31)
[2020-10-11 16:58] LABS: Adenovirus Not Detected (Not Detect); Bordetella Pertussis Not Detected (Not Detect); Chlamydophila pneumoniae Not Detected (Not Detect); Coronavirus 229E Not Detected (Not Detect); Coronavirus HKU1 Not Detected (Not Detect); Coronavirus NL63 DETECTED (Not Detect); Coronavirus OC43 Not Detected (Not Detect); Human Metapneumovirus Not Detected (Not Detect); Human Rhinovirus/Enterovirus Not Detected (Not Detect); Influenza A Subtype 2009 H1 Not Detected (Not Detect); Influenza B Not Detected (Not Detect); Mycoplasma pneumoniae Not Detected (Not Detect); Parainfluenza Virus 1 Not Detected (Not Detect); Parainfluenza Virus 2 Not Detected (Not Detect); Parainfluenza Virus 3 Not Detected (Not Detect); Parainfluenza Virus 4 Not Detected (Not Detect); Respiratory Syncytial Virus Not Detected (Not Detect); SARS-CoV-2 Not Detected (Not Detect)
[2020-10-11] MEDS: Ondansetron 4 MG/2 ML VIAL IVP PRN (18:05)
[2020-10-11] MEDS ORDERED: 0.9 % Sodium Chloride 500 ML IVC ONE (20:40)
[2020-10-11] MEDS: Piperacillin/Tazobactam 3.375 GM in 0.9 % Sodium Chloride Mini Bag 100 ML IVPB SCH (21:29)
[2020-10-12] MEDS ORDERED: 0.9 % Sodium Chloride 500 ML IVC ONE (01:15)
[2020-10-12] MEDS: Piperacillin/Tazobactam 3.375 GM in 0.9 % Sodium Chloride Mini Bag 100 ML IVPB SCH ×2 (05:01→11:13)
[2020-10-12 05:58] LABS: Hematocrit 33.9 % (37.5-50.1); Hemoglobin 10.9 g/dL (12.9-16.9); Mean Corpuscular HGB Conc 32.2 g/dL (31.6-35.5); Mean Corpuscular Hemoglobin 27.6 pg (28.0-33.3); Mean Corpuscular Volume 85.8 fL (83.0-100.0); Mean Platelet Volume 9.4 fL (9.4-12.4); Platelet Count 258 K/mcL (140-400); Red Blood Count 3.95 M/mcL (4.19-5.50); Red Cell Distribution Width 21.2 % (11.5-14.5); White Blood Count 9.2 K/mcL (4.3-11.1)
[2020-10-12] MEDS ORDERED: *HR* Enoxaparin 40 MG/0.4 ML SYRINGE SQ SCH (06:00)
[2020-10-12 06:06] LABS: INR 1.9; Prothrombin Time 21.7 Seconds (9.4-12.1)
[2020-10-12 06:22] LABS: BUN/Creatinine Ratio 26 (6-26); Blood Urea Nitrogen 31 mg/dL (6-20); Carbon Dioxide 19 mEq/L (23-29); Chloride 91 mEq/L (98-107); Glucose 107 mg/dL (70-105); Magnesium 1.7 mg/dL (1.6-2.6); Osmolality,Calculated 263 (280-300); Potassium 4.2 mEq/L (3.5-5.1); Sodium 123 mEq/L (136-145); Troponin I 0.13 ng/mL (< 0.04); eGFR For African Americans > 60 (> 60); eGFR For Non-African Americans > 60 (> 60)
[2020-10-12] MEDS: Ondansetron 4 MG/2 ML VIAL IVP PRN (07:47)
[2020-10-12] MEDS ORDERED: Metoprolol XL (24 HR) Succ 25 MG TAB.ER.24H PO SCH (11:04)
[2020-10-12] MEDS ORDERED: Furosemide 20 MG/2 ML VIAL IVP STA (14:55)
[2020-10-12 15:29] VITALS: BP 100/43
[2020-10-12] MEDS ORDERED: Nitroglycerin 0.4 MG TAB.SUBL SL SCH (17:15)
[2020-10-12] MEDS ORDERED: Nitroglycerin 0.4 MG TAB.SUBL SL PRN (17:17)
== END 2020-10-12 18:59 | disposition short-term general hospital (02) | DRG 720 ==
LOC: EMEROOARM 08:21 → 2NNU 08:21 → 3ANU 08:21 → 2NNU 16:57 → SUATTDRO 17:27
PROVIDERS: ADMIT Internal Medicine; ATTEND Student in an Organized Health Care Education/Training Program

== ENCOUNTER 2021-01-06 16:57 | Observation (INO) ==
[2021-01-06] MEDS ORDERED: Aspirin 81 MG TAB.CHEW PO ONE (17:25)
[2021-01-06] MEDS ORDERED: *HR* Heparin 5,000 UNIT/ML VIAL ONE (17:28)
[2021-01-06 17:38] LABS: Basophils # 0.1 K/mcL (0.0-0.2); Basophils % 0.8 %; Eosinophils # 0.1 K/mcL (0.0-0.6); Eosinophils % 1.4 %; Hematocrit 34.9 % (37.5-50.1); Hemoglobin 11.1 g/dL (12.9-16.9); Immature Granulocytes % 0.4 % (0-4); Lymphocytes # 2.3 K/mcL (0.6-4.6); Lymphocytes % 31.9 %; Mean Corpuscular HGB Conc 31.8 g/dL (31.6-35.5); Mean Corpuscular Hemoglobin 23.6 pg (28.0-33.3); Mean Corpuscular Volume 74.1 fL (83.0-100.0); Mean Platelet Volume 8.6 fL (9.4-12.4); Monocytes # 0.4 K/mcL (0.0-1.3); Monocytes % 5.6 %; Platelet Count 443 K/mcL (140-400); Red Blood Count 4.71 M/mcL (4.19-5.50); Segmented Neutrophils % 59.9 %; White Blood Count 7.1 K/mcL (4.3-11.1)
[2021-01-06 17:40] LABS: Neutrophils # 4.3 K/mcL (1.6-8.9)
[2021-01-06] MEDS ORDERED: ISOVUE-370 200 ML INFUS..BTL ONE (17:40)
[2021-01-06] MEDS ORDERED: 0.9 % Sodium Chloride 1,000 ML ONE (17:40)
[2021-01-06] MEDS ORDERED: Heparin 1,000 UNITS/500 mL 0 ML ONE (17:40)
[2021-01-06] MEDS ORDERED: *HR* Heparin 10,000 UNIT/10 ML VIAL ONE (17:40)
[2021-01-06] MEDS ORDERED: Nitroglycerin 1,000 MCG/5 ML VIAL IV ONE (17:40)
[2021-01-06 17:45] LABS: INR 1.7; Prothrombin Time 19.9 Seconds (9.4-12.1)
[2021-01-06] MEDS ORDERED: *HR* Midazolam HCl 2 MG/2 ML VIAL ONE (17:46)
[2021-01-06] MEDS ORDERED: *HR* FentaNYL (PF) 100 MCG/2 ML VIAL ONE (17:47)
[2021-01-06] MEDS ORDERED: Tirofiban 12.5 MG/250ML 0 MG/0 ML BAG ONE (17:47)
[2021-01-06 17:54] LABS: BUN/Creatinine Ratio 20 (6-26); Blood Urea Nitrogen 19 mg/dL (6-20); Calcium 8.1 mg/dL (8.6-10.3); Carbon Dioxide 32 mEq/L (23-29); Chloride 84 mEq/L (98-107); Glucose 91 mg/dL (70-105); Osmolality,Calculated 266 (280-300); Potassium 2.7 mEq/L (3.5-5.1); Sodium 127 mEq/L (136-145); eGFR For African Americans > 60 (> 60); eGFR For Non-African Americans > 60 (> 60)
[2021-01-06 17:59] LABS: Anisocytosis 1+ (Not Present); Hypochromasia Present (Not Present); Platelet Estimate Increased (Normal); Reactive Lymphocytes Present (Not Present); Troponin I 0.08 ng/mL (< 0.04)
[2021-01-06] MEDS ORDERED: Potassium Chloride 40 MEQ, Lidocaine 1% 2 ML in 0.9 % Sodium Chloride 500 ML IVPB ONE (18:10)
[2021-01-06] MEDS ORDERED: *HR* FentaNYL (PF) 100 MCG/2 ML VIAL IVP ONE (20:25)
[2021-01-06] MEDS ORDERED: *HR* LORazepam 2 MG/ML VIAL IVP ONE (20:25)
[2021-01-06] MEDS ORDERED: Furosemide 40 MG/4 ML VIAL IVP ONE (21:10)
[2021-01-07] MEDS ORDERED: Melatonin 3 MG TABLET PO ONE (02:07)
[2021-01-07] MEDS ORDERED: *HR* LORazepam 2 MG/ML VIAL IVP ONE (03:25)
[2021-01-07 04:15] LABS: BUN/Creatinine Ratio 19 (6-26); Blood Urea Nitrogen 22 mg/dL (6-20); Calcium 8.3 mg/dL (8.6-10.3); Carbon Dioxide 29 mEq/L (23-29); Chloride 85 mEq/L (98-107); Glucose 106 mg/dL (70-105); Osmolality,Calculated 272 (280-300); Potassium 3.1 mEq/L (3.5-5.1); Sodium 129 mEq/L (136-145); eGFR For African Americans > 60 (> 60); eGFR For Non-African Americans > 60 (> 60)
[2021-01-07 04:19] LABS: Troponin I 0.08 ng/mL (< 0.04)
[2021-01-07] MEDS ORDERED: Acetaminophen 325 MG TABLET PO PRN (05:39)
[2021-01-07] MEDS ORDERED: Ondansetron 4 MG/2 ML VIAL IVP PRN (05:39)
[2021-01-07] MEDS ORDERED: Naloxone 0.4 MG/ML INJ IVP PRN (05:39)
[2021-01-07] MEDS ORDERED: *HR* Promethazine 25 MG/ML VIAL IM PRN (05:39)
[2021-01-07] MEDS ORDERED: *HR* LORazepam 0.5 MG TABLET PO PRN (05:44)
[2021-01-07] MEDS ORDERED: *HR* OxyCODONE Immed Rel 5 MG TABLET PO PRN (06:00)
[2021-01-07] MEDS ORDERED: haloperidoL 1 MG TABLET PO PRN (06:01)
[2021-01-07 06:50] VITALS: BP 155/68
[2021-01-07 07:06] LABS: Magnesium 1.4 mg/dL (1.6-2.6)
[2021-01-07] MEDS ORDERED: Famotidine 20 MG TABLET PO SCH (07:30)
[2021-01-07] MEDS ORDERED: Furosemide 20 MG/2 ML VIAL IVP SCH (08:00)
[2021-01-07] MEDS ORDERED: Furosemide 40 MG/4 ML VIAL IVP SCH (08:00)
[2021-01-07] MEDS ORDERED: carvediloL 6.25 MG TABLET PO SCH (08:00)
[2021-01-07] MEDS ORDERED: Aspirin 81 MG TAB.CHEW PO SCH (09:00)
[2021-01-07] MEDS ORDERED: Bisacodyl 10 MG RECTAL SUPPOSITORY RC SCH (09:00)
[2021-01-07] MEDS ORDERED: Morphine Sulfate ER (12 HR) 15 MG TABLET.ER PO SCH (09:00)
== END 2021-01-07 09:15 | disposition left against medical advice (07) ==
LOC: CDU 16:57 → EMEROOARM 16:57 → CDU 01-07 06:29
PROVIDERS: ADMIT Internal Medicine; ATTEND Internal Medicine

== ENCOUNTER 2021-01-15 17:43 | Inpatient (IN) ==
[2021-01-15] MEDS ORDERED: *HR* Labetalol 20 MG/4 ML SYRINGE IVP ONE (18:24)
[2021-01-15] MEDS ORDERED: Furosemide 40 MG/4 ML VIAL IVP ONE ×2 (18:24→22:51)
[2021-01-15] MEDS ORDERED: Pantoprazole 40 MG VIAL IVP STA (18:27)
[2021-01-15] MEDS ORDERED: Nitroglycerin 0.4 MG TAB.SUBL SL PRN (18:28)
[2021-01-15] MEDS ORDERED: 0.9 % Sodium Chloride 500 ML IVC ONE ×2 (19:03→20:26)
[2021-01-15] MEDS ORDERED: Octreotide 50 MCG/ML INJ IVP ONE (19:38)
[2021-01-15] MEDS ORDERED: 0.9 % Sodium Chloride 1,000 ML ONE (19:38)
[2021-01-15] MEDS ORDERED: Octreotide 400 MCG in 0.9 % Sodium Chloride 100 ML IVC SCH (19:45)
[2021-01-15 19:57] LABS: Basophils % 0.2 %; Hematocrit 39.5 % (37.5-50.1); Lymphocytes # 1.8 K/mcL (0.6-4.6); Lymphocytes % 19.3 %; Mean Corpuscular HGB Conc 30.4 g/dL (31.6-35.5); Mean Corpuscular Hemoglobin 23.7 pg (28.0-33.3); Mean Corpuscular Volume 78.1 fL (83.0-100.0); Mean Platelet Volume 9.6 fL (9.4-12.4); Monocytes # 0.4 K/mcL (0.0-1.3); Monocytes % 4.5 %; Neutrophils # 6.8 K/mcL (1.6-8.9); Nucleated Red Blood Cells 0.9 /100 WBC (0); Platelet Count 370 K/mcL (140-400); Red Blood Count 5.06 M/mcL (4.19-5.50); Red Cell Distribution Width 21.9 % (11.5-14.5); White Blood Count 9.1 K/mcL (4.3-11.1)
[2021-01-15 20:04] LABS: INR 2.6; Prothrombin Time 29.1 Seconds (9.4-12.1)
[2021-01-15 20:07] LABS: Activated Partial Thrombo Time 29.8 Seconds (26.0-36.0)
[2021-01-15 20:13] LABS: VBG HCO3 12 mEq/L (21-27); VBG PCO2 35 mmHg (41-51); VBG PH 7.16 pH Units (7.32-7.42); VBG PO2 39 mmHg (25-50)
[2021-01-15] MEDS ORDERED: Piperacillin/Tazobactam 3.375 GM in Water for inj. (sterile) 20 ML IVP ONE (21:21)
[2021-01-15] MEDS ORDERED: Vancomycin 1,500 MG/265 ML IV.SOLN IVPB ONE (21:21)
[2021-01-15 23:04] LABS: Alanine Aminotransferase 18 Units/L (7-52); Albumin 2.9 g/dL (3.5-5.7); Alkaline Phosphatase 324 Units/L (34-104); Aspartate Amino Transferase 37 Units/L (13-39); BUN/Creatinine Ratio 13 (6-26); Bilirubin,Direct 3.5 mg/dL (0.0-0.2); Bilirubin,Indirect 1.6 mg/dL (0.0-1.0); Bilirubin,Total 5.1 mg/dL (0.3-1.0); Blood Urea Nitrogen 36 mg/dL (6-20); Calcium 8.8 mg/dL (8.6-10.3); Carbon Dioxide 10 mEq/L (23-29); Chloride 77 mEq/L (98-107); Ethanol < 10 mg/dL (Less than 10); Glucose 30 mg/dL (70-105); Iron 42 mcg/dL (65-175); Osmolality,Calculated 261 (280-300); Potassium 4.3 mEq/L (3.5-5.1); Sodium 123 mEq/L (136-145); Thyroid Stimulating Hormone 5.599 mcIU/mL (0.340-5.600); Total Protein 5.9 g/dL (6.4-8.9); Troponin I 0.14 ng/mL (< 0.04); eGFR For African Americans 31 (> 60); eGFR For Non-African Americans 26 (> 60)
[2021-01-15] MEDS: Sodium Bicarbonate 50 MEQ in 0.45 % Sodium Chloride 1,000 ML IVC SCH (23:47)
[2021-01-16] MEDS ORDERED: *HR* Dextrose 50 % in Water (Vial) 50 ML VIAL IVP ONE (00:20)
[2021-01-16 01:04] LABS: % Iron Saturation 13 % (20-55); Transferrin 235 mg/dL (203-362)
[2021-01-16] MEDS ORDERED: Ondansetron 4 MG/2 ML VIAL IVP PRN (01:56)
[2021-01-16] MEDS ORDERED: Naloxone 0.4 MG/ML INJ IVP PRN (01:56)
[2021-01-16] MEDS ORDERED: Acetaminophen 325 MG TABLET PO PRN (01:56)
[2021-01-16] MEDS ORDERED: Dexmedetomidine HCl 400 MCG/100 ML MLS IVC ONE (03:55)
[2021-01-16 04:07] LABS: ABG Base Excess -7 mEq/L (-2 to 3); ABG HCO3 16 mEq/L (21-27); ABG Oxygen Saturation 86 % (95-98); ABG PCO2 25 mmHg (35-45); ABG PH 7.42 pH Units (7.32-7.45); ABG PO2 49 mmHg (85-104); ABG TCO2 17 mEq/L (20-26); Blood Gas Pressure Support 8 cm H2O
[2021-01-16] MEDS: Dexmedetomidine HCl 400 MCG/100 ML MLS IVC SCH ×4 (04:15→16:45)
[2021-01-16 04:35] LABS: Basophils % 0.1 %; Hematocrit 34.1 % (37.5-50.1); Hemoglobin 10.6 g/dL (12.9-16.9); Immature Granulocytes % 0.7 % (0-4); Lymphocytes # 1.2 K/mcL (0.6-4.6); Lymphocytes % 10.7 %; Mean Corpuscular HGB Conc 31.1 g/dL (31.6-35.5); Mean Corpuscular Hemoglobin 23.2 pg (28.0-33.3); Mean Corpuscular Volume 74.8 fL (83.0-100.0); Mean Platelet Volume 9.4 fL (9.4-12.4); Monocytes # 0.3 K/mcL (0.0-1.3); Neutrophils # 9.6 K/mcL (1.6-8.9); Nucleated Red Blood Cells 0.4 /100 WBC (0); Platelet Count 272 K/mcL (140-400); Red Blood Count 4.56 M/mcL (4.19-5.50); Segmented Neutrophils % 85.5 %; White Blood Count 11.3 K/mcL (4.3-11.1)
[2021-01-16 04:40] LABS: INR 2.7
[2021-01-16 04:42] LABS: Bacteria,Urine Few per hpf (None-Few); Bilirubin,Urine Negative (Negative); Blood,Urine Negative (Negative); Clarity,Urine Turbid (Clear); Color,Urine Yellow (Yellow); Glucose,Urine (UA) Normal (Normal); Hyaline Casts,Urine Few per lpf (None Seen); Ketones,Urine Trace mg/dL (Negative); Leukocyte Esterase,Urine Negative (Negative); Mucus,Urine Few per lpf (None-Few); Nitrite,Urine Negative (Negative); PH,Urine 5.5 pH Units (5.0-8.0); Protein,Urine 30 mg/dL (Neg-Trace); Specific Gravity,Urine 1.016 (1.010-1.025); Squamous Epithelial Cell,Urine Few per hpf (None-Few)
[2021-01-16 04:54] LABS: Albumin 2.9 g/dL (3.5-5.7); Bilirubin,Direct 3.7 mg/dL (0.0-0.2); Bilirubin,Indirect 1.8 mg/dL (0.0-1.0); Bilirubin,Total 5.5 mg/dL (0.3-1.0); Calcium 8.5 mg/dL (8.6-10.3); Magnesium 1.7 mg/dL (1.6-2.6); Potassium 4.4 mEq/L (3.5-5.1); Total Protein 5.9 g/dL (6.4-8.9)
[2021-01-16 04:58] LABS: Troponin I 0.15 ng/mL (< 0.04)
[2021-01-16] MEDS ORDERED: Norepinephrine 4 MG/254 ML IV.SOLN IVC SCH (09:15)
[2021-01-16] MEDS: Sodium Bicarbonate 50 MEQ in 0.45 % Sodium Chloride 1,000 ML IVC SCH (09:40)
[2021-01-16 10:26] LABS: Calcium 8.3 mg/dL (8.6-10.3); Potassium 4.6 mEq/L (3.5-5.1)
[2021-01-16] MEDS ORDERED: Haloperidol Lactate 5 MG/ML VIAL IVP ONE ×2 (12:12→14:07)
[2021-01-16] MEDS ORDERED: Haloperidol Lactate 5 MG/ML VIAL IVP PRN (12:17)
[2021-01-16] MEDS ORDERED: *HR* FentaNYL (PF) 100 MCG/2 ML VIAL IVP PRN ×2 (12:18→14:10)
[2021-01-16] MEDS ORDERED: Atropine 1% Opth Drops 100 DROP/5 ML BOTTLE SL PRN (12:18)
[2021-01-16] MEDS: *HR* LORazepam 2 MG/ML VIAL IVP PRN ×3 (13:51→22:46)
[2021-01-16] MEDS: *HR* FentaNYL (PF) 100 MCG/2 ML VIAL IVP PRN (15:58)
[2021-01-17] MEDS: *HR* LORazepam 2 MG/ML VIAL IVP PRN ×2 (03:09→09:49)
[2021-01-17] MEDS: *HR* FentaNYL (PF) 100 MCG/2 ML VIAL IVP PRN ×3 (03:11→11:14)
[2021-01-17 07:41] VITALS: BP 51/28; PULSE 114; TEMP 98.2; O2SAT 91
[2021-01-17] MEDS ORDERED: Morphine Sulfate Oral CONC 10 MG/0.5 ML ORAL.SYG SL PRN (11:20)
== END 2021-01-17 11:54 | disposition expired | DRG 190 ==
LOC: EMEROOARM 17:43 → ICNU 01-16 02:15 → 2ANU 01-16 22:19
PROVIDERS: ADMIT Internal Medicine; ATTEND Internal Medicine